=== PATIENT | male | born 1975 | race Caucasian/White ===

== ENCOUNTER 2018-04-02 15:39 | Inpatient (IN) ==
[2018-04-02 16:32] LABS: Basophils # (auto) 0.03 K/uL (0-0.2); Basophils % (auto) 0.3 %; Eosinophils # (auto) 0.23 K/uL (0-0.5); Hematocrit (blood only) 39.2 % (42-52); Hemoglobin 13.2 g/dL (14.0-18.0); Immature Granulocytes # (auto) 0.06 K/uL (0.00-0.02); Immature Granulocytes % (auto) 0.5 %; Lymphocytes # (auto) 1.74 K/uL (1.2-3.4); Lymphocytes % (auto) 15.3 %; Mean Corpuscular Hgb Conc 33.7 g/dL (32-36); Mean Corpuscular Volume 89.3 fL (80-100); Mean Platelet Volume 10.3 fL (7.4-10.4); Monocytes # (auto) 1.12 K/uL (0.11-0.59); Monocytes % (auto) 9.9 %; Neutrophils # (auto) 8.16 K/uL (1.4-6.5); Platelet Count 378 K/uL (130-400); RDW Coefficient of Variation 13.1 % (11.5-14.5); RDW Standard Deviation 42.6 fL (36.4-46.3); Red Blood Count 4.39 M/uL (4.7-6.1); White Blood Count 11.34 K/uL (4.8-10.8)
[2018-04-02 17:07] LABS: Albumin Globulin Ratio 0.7 (0.9-2); Albumin Level 3.1 gm/dl (3.4-5.0); BUN Creatinine Ratio 15.9 (10-20); Bilirubin,Total 0.4 mg/dl (0.1-1); Calcium 9.1 mg/dl (8.5-10.1); Est GFR (African American) 102.4; Est GFR (Non-African American) 88.4; Globulin 4.6 gm/dl (2.5-4.0); Potassium 4.3 mmol/L (3.5-5.1); Total Protein 7.7 gm/dl (6.4-8.2)
[2018-04-02] MEDS ORDERED: VANCOMYCIN HCL 1,500 MG in SODIUM CHLORIDE 0.9% 500 ML IV ONE (17:46)
[2018-04-02] MEDS ORDERED: VANCOMYCIN CONSULT ACTIVE PRN ×2 (17:46→19:27)
--- NOTE | 2018-04-02 18:00 | History & Physical Report ---
Date of Service April 02, 2018 Assessment & Plan (1) Diabetic ulcer of left foot: - Xray negative for acute osteomyelitis, if worsening appearance can consider MRI foot. - WBC elevated mildly at 13 K with a left shift, afebrile, VSS - Pt was here in the ER on Sunday and received tx with Rocephin and was sent home with keflex and bactrim without improvement. - Cont Vanc and add zosyn IV for skin involvement - Wound culture of left lateral plantar surface ulceration, MRSA swab, wound consult - Non-painful so no pain medication necessary (2) DM type 1 (diabetes mellitus, type 1): - Continue Lantus 20 U Q PM and Q AM - ISS with accuchecks - A1c in am. - Pt notes glucose has been running around 200s on most days. May need increased insulin at time of discharge, close follow up with PCP for management (3) Renal insufficiency: - Secondary to DM - Follow am prp, Cr. currently 1.05 and at baseline (4) Smoking greater than 30 pack years: - Cessation encouraged at bedside, ordered nicotine patch - Pt typically smokes 1 ppd since age 17, making his pack years = 35 (5) DVT prophylaxis: SCDs until seen by podiatry History of Present Illness Chief Complaint: Left foot ulcer Primary Care Provider: Polina Whitmore MD This is a 42 yo M with PMHx of DM type I, renal insufficiency, chronic tobacco use smoking 1 pack/day x 35 years, diabetic left foot ulcers who presents today after visiting with his PCP. Pt's fiance is present at bedside and supports the history. Patient notes his foot had been red, warm, and he has been unable to walk very well on it for long distances due to pain. It was more swollen a few days ago but has not completely resolved, skin on his foot is peeling where it was more swollen. The ulcer started oozing purulent fluid several days ago. He denies any fevers, chills or sweats. Patient was in the ER on 03/31/18 where he was treated with IV Rocephin for a left sided foot ulcer, although there are multiple ulcers on the left foot, the ulcer that PCP is concerned about is the one that is most lateral on the plantar surface. He was sent home from the ER with prescriptions for Keflex and Bactrim and began taking these. Patient was seen in his PCP earlier today and she feels that the left foot ulcer does not look much more improved therefore sent him back to the ER for IV antibiotics. Here the patient has a white count of 13 K with a left shift Afebrile, VSS, x-ray of the foot is negative for osteomyelitis. Allergies Allergy/AdvReac Type Severity Reaction Status Date / Time No Known Allergies Allergy Mild Verified 03/31/18 23:54 Home Medications Home Medications Medication Instructions Recorded Confirmed Type insulin glargine [Lantus U-100 20 unit SUBCUT AMPM 03/31/18 04/02/18 History Insulin] insulin lispro [Humalog KwikPen 0 units SUBCUT ACHS 03/31/18 04/02/18 History Insulin] cephalexin [Keflex] 500 mg PO QID 10 Days #40 cap 04/01/18 04/02/18 Rx sulfamethoxazole-trimethoprim 1 tab PO Q12H #20 tab 04/01/18 04/02/18 Rx [Bactrim DS] Past Med/Surg History Medical History Smoking greater than 30 pack years DM type 1 (diabetes mellitus, type 1) Diabetic ulcer of left foot (Acute) Diabetes Cellulitis (Acute) Social History marital status: Current Living Situation: Spouse current occupational status: employed Feels Safe at Home: Yes Smoking Status: Current every day smoker Review of Systems Constitutional: No fever, sweats or chills Eyes: No diplopia, no worsening or blurred vision ENT: normal hearing, no trouble swallowing Respiratory: No cough, sputum, dyspnea at rest or on exertion Cardiovascular: No chest pain, tightness or palpitations Abdomen: No pain, nausea, vomiting, diarrhea or constipation Musculoskeletal: No joint pain, calf pain, swelling, see HPI regarding foot. Neurologic: No weakness, numbness/tingling, or balance problems Psychiatric: No anxiety or depression Skin: No rash or itch Physical Exam 2 Vital Signs (Past 24 Hours): Last Vital Signs Temp 36.8 C 04/02/18 15:48 Pulse 88 04/02/18 15:48 Resp 18 04/02/18 15:48 BP 116/71 04/02/18 15:48 Pulse Ox 99 04/02/18 15:48 Physical Exam: General: awake, alert, no apparent distress Head: Normocephalic, atraumatic ENT: PERRL, EOMI, no pharyngeal exudate, mucous membranes moist, + poor dentition Chest: Clear to auscultation, on room air, no adventitious breath sounds Cardiac: Regular rate and rhythm, no murmur, no JVD, normal peripheral pulses, good capillary refill Abdominal: NABS x 4 quadrants, soft, nontender to palpation, no rebound, guarding or tenderness Extremities: + Left foot s/p great toe amputation, + ulceration on plantar surface of great toe metatarsal measuring about 1cm in diameter, no erythema. + ulceration on plantar surface at the lateral aspect under fifth toe metatarsal which is slightly smaller in size, surrounding erythema, + serosanguineous drainage. + small ulceration on dorsal aspect of 5th toe metatarsal, + generalized erythema and minimal edema of the left foot, + warmth up to the ankle. + BLE ant tibial region dry skin patches, + R foot with dry cracked skin. calfs nontender to palpation. + Erythema of bilateral elbows, nonpainful to touch, no edema. Psych: Normal mood and affect Neuro: AAO x 3, strength intact bilaterally and related 5/5, no motor deficits, speech is clear, no peripheral sensory deficits Results & Data Diagnostic Findings XR foot LT 2V HISTORY: 42 years-old Male eval for osteo of 1st and 5th toes soft tissue swelling of the foot with concern for osteomyelitis COMPARISON: Left foot radiographs 02/16/2013 TECHNIQUE: 2 views of the left foot FINDINGS: Postoperative changes from prior amputation of the first and fifth digits at the level of the metatarsal phalangeal joints. Moderate soft tissue swelling about the forefoot. Ill-defined soft tissue lucencies about the first and fifth digits suggest possible skin ulcerations. No opaque foreign bodies identified. Severe joint space narrowing with marginal osteophytic spurring of the second metatarsophalangeal joint with superior subluxation of the second through fourth metatarsophalangeal joints. Demineralized appearance of the bones. No acute fracture, dislocation or definite evidence of acute osteomyelitis. Peripheral arterial calcifications are noted. IMPRESSION: 1. 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 Soft tissue swelling noted within these distributions without definite evidence of acute osteomyelitis. 2. Degenerative changes as above with subluxation of the second through fourth metatarsal phalangeal joints. 3. Peripheral arterial disease. Code Status & VTE Plan Code Status Full code Supervising Physician Co-Signing Physician Notes I interviewed and examined the patient independantly of Rosalind Ashraf PA-C. I agree with the assessment and plan in her note with any exceptions below. 42yo M w/ hx of DM1 who presents with left foot ulcers. Will start vanc/Zosyn as he was not improving on oral abx. Will have podiatry and wound care see him inpatient. _ (1) Diabetic ulcer of left foot Diabetes mellitus type: type 1 Diabetic foot ulcer location: toe Non- pressure ulcer stage: unspecified non-pressure ulcer stage Qualified Code(s): E10.621 - Type 1 diabetes mellitus with foot ulcer; L97.529 - Non-pressure chronic ulcer of other part of left foot with unspecified severity (2) DM type 1 (diabetes mellitus, type 1) Diabetes mellitus complication status: with skin complications Diabetes mellitus complication detail: with foot ulcer Qualified Code(s): E10.621 - Type 1 diabetes mellitus with foot ulcer; L97.509 - Non-pressure chronic ulcer of other part of unspecified foot with unspecified severity
[2018-04-02] MEDS ORDERED: GLUCOSE 40% GEL 15 GM TUBE PO PRN (19:27)
[2018-04-02] MEDS ORDERED: ONDANSETRON INJ 2 MG/ML 2 ML VIAL IV PRN (19:27)
[2018-04-02] MEDS ORDERED: DEXTROSE 50% 50 ML SYRINGE IV PRN (19:27)
[2018-04-02] MEDS ORDERED: PIPERACILLIN/TAZOBACTAM 4.5 GM/120 ML BAG IV SCH (19:27)
[2018-04-02] MEDS ORDERED: PIPERACILL/TAZOBAC CONSULT ACTIVE PRN (19:27)
[2018-04-02] MEDS ORDERED: GLUCAGON FOR INJ 1 MG VIAL SQ PRN (19:27)
[2018-04-02] MEDS ORDERED: CARBOHYDRATES FOR HYPOGLYCEMIA PO PRN (19:27)
[2018-04-02] MEDS ORDERED: GLUCOSE 10 TABS/TUBE PO PRN (19:27)
[2018-04-02] MEDS ORDERED: VANCOMYCIN HCL 1,000 MG in SODIUM CHLORIDE 0.9% 250 ML IV SCH (19:27)
--- NOTE | 2018-04-02 19:39 | Emergency Department Note ---
Entered by Dominga Dey acting as a scribe for History of Present Illness General Chief complaint: Foot Pain/Injury Stated complaint: LEFT FOOT PAIN Source: patient Limitations: no limitations History of Present Illness Provider complaint: foot pain Onset (ago): month(s) 2 Location: foot and left Maximum Pain Intensity: 6 Associated symptoms: + denies other symptoms (runny nose); no chest pain and no cough The patient is a 42 year old male who presents to the Emergency Room with complaints of left foot pain that has been going on for 2 months. The patient states that he was in the ED 2 days prior and states that he was given a prescription for Bactrim and then discharged. The patient states that he just started the Bactrim yesterday. The patient denies chest pain, runny nose, or coughing. The patient states that he has a history of Type 1 diabetes and states that he last checked his blood sugar this morning. Home Medications Home Medications Medication Instructions Recorded Confirmed Type insulin glargine [Lantus U-100 20 unit SUBCUT AMPM 03/31/18 04/02/18 History Insulin] insulin lispro [Humalog KwikPen 0 units SUBCUT ACHS 03/31/18 04/02/18 History Insulin] cephalexin [Keflex] 500 mg PO QID 10 Days #40 cap 04/01/18 04/02/18 Rx sulfamethoxazole-trimethoprim 1 tab PO Q12H #20 tab 04/01/18 04/02/18 Rx [Bactrim DS] Allergies Allergy/AdvReac Type Severity Reaction Status Date / Time No Known Allergies Allergy Mild Verified 03/31/18 23:54 Past Med/Surg History Medical History Smoking greater than 30 pack years DM type 1 (diabetes mellitus, type 1) Diabetic ulcer of left foot (Acute) Diabetes Cellulitis (Acute) Social History marital status: Current Living Situation: Spouse current occupational status: employed Feels Safe at Home: Yes Smoking Status: Current every day smoker Review of Systems See HPI for pertinent positives & negatives. and A total of 10 systems reviewed and were otherwise negative Physical Exam Vital Signs Vital Signs - 24 hr 04/02/18 15:48 04/02/18 19:27 Temperature 36.8 C Temperature Source Oral Sepsis Recent Fever Within 48 Hours No Sepsis New/Unexplained Change in Mental Status No Sepsis Action Taken by Nursing No Action Required Pulse Rate 88 76 Pulse Rhythm Regular Pulse Strength Normal Respiratory Rate 18 16 Respiratory Effort / Characteristics Non-Labored Spontaneous Respiratory Depth Normal Respiratory Pattern Regular Blood Pressure 116/71 125/69 Blood Pressure Mean 86 Blood Pressure Position Sitting Pulse Oximetry 99 98 Oxygen Delivery Method Room Air Room Air GENERAL: Sitting up in bed, alert, well appearing, well nourished, no distress, non-toxic EYE EXAM: normal conjunctiva. OROPHARYNX: no exudate, no erythema, lips, buccal mucosa, and tongue normal and mucous membranes are moist NECK: supple, no nuchal rigidity, no adenopathy, non-tender LUNGS: Clear to auscultation. Normal chest wall mechanics HEART: no murmurs, S1 normal and S2 normal ABDOMEN: abdomen soft, non-tender, normo-active bowel, sounds, no masses, no rebound or guarding. BACK: Back is symmetrical on inspection and there is no deformity, no midline tenderness, no CVA tenderness. SKIN: no rashes and no bruising UPPER EXTREMITIES: upper extremities are grossly normal. LOWER EXTREMITIES: No pitting edema. Left foot 1st and 5th metatarsal prior amputation. 1cm ulcer draining at base of left 5th MTP with green purulent discharge. 1cm by 1cm ulcer drainage with green discharge at base of left foot tracks down into muscle belly. 1cm by 2cm ulcer at base of amputated 1st metatarsal, tracking down to muscle belly. NEURO EXAM: Normal sensorium, cranial nerves II-XII intact, normal speech, no weakness of arms, no weakness of legs. Course ED COURSE: Vital signs were reviewed and showed normal. The patients medical record was reviewed The above diagnostic studies were performed and reviewed. ED treatments and interventions as stated above. 1554: The patient was evaluated in room A3. A complete history and physical examination was performed. 1612: I discussed the patient's case with his provider who recommended that the patient be seen in the ED again due to the patient's muscle aches. 1840: Upon reevaluation, the patient is doing better. I discussed my findings with the patient and he understands and agrees with the treatment plan. Based on the patients age, coexisting illnesses, exam and lab findings the decision to treat as an inpatient was made. The patient remained stable while under my care. 1855: The patient will be evaluated for further management by Dr. Hayden Castro Consultations Consultation #1: Dr. Hayden Castro Time: 18:55 Administered Medications Vancomycin HCl 1,500 mg/ (Sodium Chloride) 530 mls @ 200 mls/hr IV NOW ONE Stop: 04/02/18 20:24 Last Admin: 04/02/18 18:38 Dose: 200 mls/hr Medical Decision Making Differential Diagnosis Differential diagnosis includes etiologies such as cellulitis, abscess, MRSA infection, DVT, necrotizing fasciitis, dermatitis, drug eruption, as well as others were entertained. Medical Records Attestation: I reviewed the patient's medical records. Home Medications Current Medication List: was personally reviewed by me Laboratory Data Attestation: I reviewed the patient's lab results. Result diagrams: 04/02/18 16:20 04/02/18 16:20 Lab Results 04/02/18 04/02/18 Range/Units 16:20 16:20 WBC 11.34 H (4.8-10.8) K/uL RBC 4.39 L (4.7-6.1) M/uL Hgb 13.2 L (14.0-18.0) g/dL Hct 39.2 L (42-52) % MCV 89.3 (80-100) fL MCH 30.1 (25-34) pg MCHC 33.7 (32-36) g/dL RDW Std Deviation 42.6 (36.4-46.3) fL RDW Coeff of Shauna 13.1 (11.5-14.5) % Plt Count 378 (130-400) K/uL MPV 10.3 (7.4-10.4) fL Immature Gran % (Auto) 0.5 % Neut % (Auto) 72.0 % Lymph % (Auto) 15.3 % Shannon % (Auto) 9.9 % Eos % (Auto) 2.0 % Baso % (Auto) 0.3 % Immature Gran # (Auto) 0.06 H (0.00-0.02) K/uL Neut # (Auto) 8.16 H (1.4-6.5) K/uL Lymph # (Auto) 1.74 (1.2-3.4) K/uL Shannon # (Auto) 1.12 H (0.11-0.59) K/uL Eos # (Auto) 0.23 (0-0.5) K/uL Baso # (Auto) 0.03 (0-0.2) K/uL Sodium 137 (136-145) mmol/L Potassium 4.3 (3.5-5.1) mmol/L Chloride 102 (98-107) mmol/L Carbon Dioxide 28 (21-32) mmol/L Anion Gap 7.0 (3-11) BUN 17 (7-18) mg/dl Creatinine 1.05 (0.6-1.4) mg/dl Est Cr Clr Drug Dosing 84.0 ml/min Est GFR ( Amer) 102.4 Est GFR (Non-Af Amer) 88.4 BUN/Creatinine Ratio 15.9 (10-20) Glucose 291 H (70-99) mg/dl Calcium 9.1 (8.5-10.1) mg/dl Total Bilirubin 0.4 (0.1-1) mg/dl AST 30 (15-37) U/L ALT 135 H (12-78) U/L Alkaline Phosphatase 425 H (45-117) U/L Total Protein 7.7 (6.4-8.2) gm/dl Albumin 3.1 L (3.4-5.0) gm/dl Globulin 4.6 H (2.5-4.0) gm/dl Albumin/Globulin Ratio 0.7 L (0.9-2) Blood Pressure Blood Pressure Findings: Normal blood pressure MDM Narrative Patient is a 42-year-old male presents the ER for infected left foot. Patient was seen here couple days ago for the same complaint and was discharged on Bactrim and Keflex. Patient has taken a total 24 hours of Bactrim and Keflex. He is a diabetic. He was sent in by his PCP who evaluated him. I talked with the PCP who was gracious enough to call me back and notes that she would like him reevaluated and possible by orthopedics. Based on this I discussed case with the hospitalist for further workup. Recent x-ray showed no osteo-. Patient was given IV vancomycin as well as fluids. He was updated bedside. CBC showed a mild leukocytosis. BMP was unremarkable along with a mild transaminitis of an ALT of 135. Patient was admitted to the hospital for further workup. Impression & Plan Cellulitis Discharge Plan Visit Data Chief Complaint: Foot Pain/Injury Stated Complaint: LEFT FOOT PAIN ED Provider: Tyler Ruth Discharge Problem: Cellulitis Patient Disposition: Admitted As Inpatient Discharge Instructions Interventions: ED Discharge Assessment Last Done: 04/02/18 19:27 The scribe's documentation has been prepared under my direction and personally reviewed by me in its entirety. I confirm that the note above accurately reflects all work, treatment, procedures, and medical decision making performed by me.
[2018-04-02] MEDS ORDERED: PIPERACILLIN/TAZOBACTAM 3.375 GM in DEXTROSE 5% 100 ML IV ONE (19:45)
[2018-04-02] MEDS ORDERED: INSULIN GLARGINE SOLOSTAR 100 UNITS/ML 3 ML PEN SQ SCH (20:30)
[2018-04-02] MEDS: NICOTINE 21 MG/24 HR TDSY TD SCH (20:58)
[2018-04-02] MEDS ORDERED: INSULIN LISPRO SQ SCH (21:00)
--- NOTE | 2018-04-02 21:06 | Pharmacy Report ---
Pharmacy Abx Dose Short Note - Date of Service April 02, 2018 - Assessment & Plan Assessment * 43 yo M on Zosyn and vancomycin for diabetic foot infection * Failed outpatient cephalexin and Bactrim * X-ray negative for osteomyelitis * SCr at baseline per H&P Vancomycin * Goal trough 15-20 mcg/mL * 24 mg/kg administered in the ED * Will dose ongoing at 19 mg/kg IV q10h * Trough prior to the 4th overall dose Plan * Vancomycin 1250 mg IV q10h * Trough 04/03 @ 2330 Pharmacy will continue to follow and will adjust dose/frequency as necessary. Thank you.
[2018-04-02] MEDS: INSULIN GLARGINE SOLOSTAR 100 UNITS/ML 3 ML PEN SQ SCH (21:16)
[2018-04-02] MEDS: INSULIN ASPART 100 UNITS/ML 3 ML PEN SC SCH (21:39)
[2018-04-03] MEDS: PIPERACILLIN/TAZOBACTAM 3.375 GM in DEXTROSE 5% 100 ML IV SCH ×3 (01:54→18:18)
[2018-04-03] MEDS: VANCOMYCIN HCL 1,250 MG in SODIUM CHLORIDE 0.9% 250 ML IV SCH ×3 (03:54→23:47)
[2018-04-03 05:44] LABS: Mean Corpuscular Hgb Conc 33.3 g/dL (32-36); Mean Corpuscular Volume 88.8 fL (80-100); Mean Platelet Volume 10.1 fL (7.4-10.4); Platelet Count 405 K/uL (130-400); RDW Coefficient of Variation 13.1 % (11.5-14.5); RDW Standard Deviation 42.8 fL (36.4-46.3); Red Blood Count 4.39 M/uL (4.7-6.1)
[2018-04-03 06:16] LABS: Estimated Average Glucose 278 mg/dl
[2018-04-03 06:21] LABS: Albumin Level 2.5 gm/dl (3.4-5.0); BUN Creatinine Ratio 17.5 (10-20); Calcium 8.4 mg/dl (8.5-10.1); Creatinine Clr Calc Pharmacy 86.5 ml/min; Est GFR (African American) 111.3; Est GFR (Non-African American) 96.1; Potassium 3.8 mmol/L (3.5-5.1)
[2018-04-03 06:24] LABS: Albumin Globulin Ratio 0.6 (0.9-2); Bilirubin,Total 0.3 mg/dl (0.1-1); Globulin 4.3 gm/dl (2.5-4.0); Total Protein 6.8 gm/dl (6.4-8.2)
[2018-04-03] MEDS: NICOTINE 21 MG/24 HR TDSY TD SCH (08:52)
[2018-04-03] MEDS: INSULIN GLARGINE SOLOSTAR 100 UNITS/ML 3 ML PEN SQ SCH (08:53)
[2018-04-03] MEDS: INSULIN ASPART 100 UNITS/ML 3 ML PEN SC SCH ×4 (08:53→21:08)
[2018-04-03] MEDS ORDERED: ACETAMINOPHEN 325 MG TAB PO PRN (09:16)
[2018-04-03] MEDS ORDERED: TRAMADOL HCL 50 MG TABLET PO PRN (09:16)
[2018-04-03] MEDS ORDERED: PHARMACY GLYCEMIC MGMT CONSULT PRN (13:07)
--- NOTE | 2018-04-03 13:14 | Hospitalist Progress Note ---
Date of Service April 03, 2018 Assessment & Plan (1) Diabetic ulcer of left foot: X-ray on 04/01 was negative for acute osteomyelitis; however, he was seen by podiatry on 04/03 who had clinical concern for osteomyelitis. MRI of left foot ordered on 04/03, but not done yet. - Follow up wound culture from 04/01 of left lateral plantar surface ulceration - Repeat culture done by podiatry on 04/03 - Cont vanc/Zosyn for diabetic foot ulcer (2) DM type 1 (diabetes mellitus, type 1): A1c on 04/03 was 11.3%, indicating an average glucose of ~275. Not great control. - Continue home Lantus 20 units Q12h - Sliding scale - Glycemic consult (3) Smoking greater than 30 pack years: Pt typically smokes 1 ppd since age 17. - Cessation encouraged at bedside, ordered nicotine patch. (4) DVT prophylaxis: SCDs until MRI given he may need surgery Subjective 42yo M w/ hx of DM1 who presents with left foot ulcers. This morning, he was in ok spirits. Had been hoping to be discharged, but understands why he can't go yet. Reports no fevers/chills, chest pain, shortness of breath, abdominal pain, nausea, or vomiting. Physical Exam 2 Vital Signs (Past 24 Hours): Last Vital Signs Temp 36.7 C 04/03/18 07:32 Pulse 81 04/03/18 07:32 Resp 20 04/03/18 07:32 BP 108/71 04/03/18 07:32 Pulse Ox 96 04/03/18 07:32 Constitutional: WD/WN, vitals as above Eyes: EOM intact bilaterally; no conjunctival abnormality ENMT: external ear and nose normal, oropharynx normal Neck: trachea midline, no thyromegaly normal visual inspection Respiratory: normal respiratory effort, lungs clear to auscultation no respiratory distress Cardiovascular: RRR, no murmur, no edema Gastrointestinal (Abdomen): Inspection/Auscultation: abdomen normal to inspection; abdomen not distended Musculoskeletal: no cyanosis or clubbing, extremities motor strength 5/5 Skin: + wound (3 wounds on left foot) Neurologic: moves all extremities and awake Psychiatric: Orientation: alert, oriented to person and cooperative _ (1) Diabetic ulcer of left foot Diabetes mellitus type: type 1 Diabetic foot ulcer location: toe Non- pressure ulcer stage: unspecified non-pressure ulcer stage Qualified Code(s): E10.621 - Type 1 diabetes mellitus with foot ulcer; L97.529 - Non-pressure chronic ulcer of other part of left foot with unspecified severity (2) DM type 1 (diabetes mellitus, type 1) Diabetes mellitus complication status: with skin complications Diabetes mellitus complication detail: with foot ulcer Diabetic retinopathy severity: Proliferative retinopathy type: Diabetes mellitus macular edema: Laterality : Chronic kidney disease stage: Qualified Code(s): E10.621 - Type 1 diabetes mellitus with foot ulcer; L97.509 - Non-pressure chronic ulcer of other part of unspecified foot with unspecified severity
--- NOTE | 2018-04-03 14:02 | Pharmacy Report ---
Glycemic Control Consultation - Date of Service April 03, 2018 - Scope Scope: Glycemic Pharmacist consulted by Dr Pradip Lemus on 04-03-18 for glycemic control and to write orders per [facility] inpatient glycemic control protocol - Objective Weight: 61 kg Accuchecks BSG (last 24hrs): 04/02/18 04/02/18 04/03/18 16:20 19:52 05:19 Glucose 291 H 216 H POC Glucose 372 H* 04/03/18 04/03/18 07:46 11:41 Glucose POC Glucose 167 H 260 H Laboratory Data (last 24hrs): HbA1c: Hemoglobin A1c 11.3 % (4.5-5.6) H 04/03/18 05:19 - Recent Pertinent Medications Outpatient Anti-diabetic Regimen: * Lantus 20 units QAM and QPM, Lispro ACHS * A1c = 11.3 % [04-03-18] The patient is currently receiving: * Basal insulin: Lantus 20 units BID * Correctional Insulin: Novolog Correction per scale ACHS Goal Range: Low 110 mg/dL - High 160 mg/dL Correction Factor: 25 mg/dL/unit * Prandial insulin: Per carb ratio of 1 unit per 10 grams CHO consumed * Oral Agents: Risk Factors for Insulin Resistance * Infection: diabetic foot infection - vancomcyin/zosyn * Diet: T1DM - Assessment & Plan Assessment & Plan: ASSESSMENT: * 42 year old type 1 diabetic admitted with diabetic foot infection. Concern for possible osteomyelitis, currently on vancomycin and zosyn. A1c of 11.3 indicates poor control at home. Per provider notes, patient states his BSGs have been in the 200s on most days. * Pharmacy consulted today for glucose management - suspect hyperglycemia on admission due to infection * Fasting BSG this morning elevated at 216 mg/dL, then at lunchtime at 260 mg/ dL - already received Lantus 20 units this morning (his usual home dose) and also sliding scale coverage * Will further tighten dinner time CF/CR and also adjust bedtime Lantus dosing PLAN FOR INPATIENT GLYCEMIC CONTROL * Basal insulin - increased * Lantus BID per scale -For BSG less than 180 - give 20 units of Lantus -For BSG 180 mg/dL or greater - give 25 units of Lantus * Bolus insulin - tightened ; also added overnight checks * NovoLog per scale ACHS or Q6hrs while NPO * Goal Range: Low 110 mg/dL - High 140 mg/dL * Correction Factor: 20 mg/dL/unit * Nutritional / Prandial insulin per carb ratio of 1 unit per 8 grams CHO consumed * Please note that the plan above was derived based on current level of insulin resistance and hospital stress. These recommendations are appropriate for inpatient admission only. Plan of care upon discharge will need to be reassessed to avoid potential outpatient hypo/hyperglycemia. Thank you.
[2018-04-03] MEDS ORDERED: MoRPHine SULFATE 4 MG/ML 1 ML CARP\\VIAL IV PRN (14:28)
--- NOTE | 2018-04-03 14:29 | Magnetic Resonance Report ---
MRI OF THE LEFT FOOT WITHOUT CONTRAST CLINICAL HISTORY: Evaluate for first and fifth digit osteomyelitis. Infection. COMPARISON STUDY: Left foot radiographs April 01, 2018. MRI of the left foot February 15, 2013. TECHNIQUE: Utilizing a 1.5 Gillian magnet, multiplanar, multiecho imaging of the left foot was performe d without intravenous contrast. FINDINGS: Note is made of amputation of the first and fifth digits at the level of the metatarsophala ngeal joints. There is marrow edema throughout the left fifth metatarsal with markedly diminished T1 signal within the left fifth metatarsal head consistent with osteomyelitis. Note is made of an subjac ent 2 x 2.1 x 0.5 cm fluid collection along the lateral aspect of the left fifth metatarsal head sugg estive of an abscess. Note is made of an additional 1.5 x 0.8 cm fluid collection along the plantar m edial aspect of the left fifth metatarsal suggestive of an additional abscess. Small hypodense foci a djacent to the amputation site within the left first digit likely reflects gas. There is also suspect ed gas adjacent to the fifth digit amputation site. Note is made of a 0.9 cm T2 1 hypointense focus w ithin the dorsal distal aspect of the left first metatarsal head. There is marrow edema within the le ft first metatarsal. This suggests distal osteomyelitis. Chronic subluxation at the second and third metatarsophalangeal joints is noted. No additional sites of marrow edema are present. IMPRESSION: 1. Findings consistent with osteomyelitis of the left fifth metatarsal head likely extending into the distal metatarsal shaft. Two fluid collections adjacent to the fifth metatarsal suggest abscesses, a s described above. 2. Findings suggestive of focal osteomyelitis of the dorsal left first metatarsal head with osteitis within the remainder of the left first metatarsal. 3. Status post amputation of the left first and fifth digits at the level the metatarsophalangeal abel nts. Suspected gas within the adjacent soft tissues. Electronically signed by: Antony Betancur M.D. 04/03/2018 2:28 PM
--- NOTE | 2018-04-03 15:16 | Ultrasound Report ---
US ankle/brachial index comp CLINICAL HISTORY: with digital toe presssure for chronic ulceration COMPARISON STUDY: Left lower extremity arterial Doppler study 09/10/2012. FINDINGS: The right ankle-brachial index was unable to be calculated due to the noncompressible poste rior tibial and dorsalis pedis arteries. The digit/brachial index on the right was 0.6. A left ankle- brachial index was 1.4 and the left digit/brachial index was 0.28. IMPRESSION: Ankle/brachial and digit/brachial indices as described above. Electronically signed by: Rolly Olson M.D. 04/03/2018 3:14 PM
--- NOTE | 2018-04-03 20:24 | Consultation Report ---
DATE OF CONSULTATION: 04/03/2018 HISTORY OF PRESENT ILLNESS: A 42-year-old male seen at bedside at the request of the hospitalist due to foot wound. The patient presented to the ER 6 days ago due to left foot pain. He was given 1 dose of Rocephin and discharged on Keflex and Bactrim. Earlier today, the patient saw his primary care doctor who recommended admission for IV antibiotics due to continued left foot pain. The patient was readmitted to the hospital and started on vancomycin and Zosyn. He is an uncontrolled diabetic, history of foot problems in [address] Pandya amputated the left first and fifth digit secondary to a bone infection per the patient. The patient has been not followed on a regular basis and has not taken his diabetes medicine secondary to losing his insurance. He denies fevers, chills and night sweats at bedside. He does know recently a new opening on the dorsal aspect of his left foot. The patient was seen at bedside with the help of wound care nurse from [facility]. PAST SURGICAL HISTORY: Retinopathy for eye surgery in 2009, right knee scope in 2005, and left foot surgery in 2017. PAST MEDICAL HISTORY: IDDM poorly controlled with peripheral vascular disease and peripheral neuropathy and renal insufficiency and diabetic retinopathy. MEDICATIONS: Per chart. Currently on vancomycin and Zosyn. ALLERGIES: No known drug allergies. SOCIAL HISTORY: A 30-year tobacco use history, currently engaged to be . PHYSICAL EXAMINATION: VITAL SIGNS: BP 105/65, pulse 75, respiratory rate 20, temp 36.8. LOWER EXTREMITY: Digital hair is palpable. There is bleeding. Pulses difficult to obtain bilateral lower extremities. Bleeding is noted upon debridement. DERMATOLOGIC: The integument to the right foot is intact. The left foot has 3 openings. The left first MTPJ distal plantarly measuring 1.5 x 1.2 x 0.4 with bone exposed and palpable; the plantar lateral left fifth MTPJ measuring 0.8 x 0.9 x 0.9 with bone exposed and purulent serosanguineous drainage noted over the left fifth MTPJ; dorsolateral, there is a new opening measuring 0.5 x 0.7 x 1.1, which is tracking. NEUROLOGIC: Epicritic sensation per [employer] monofilament 5.07 decreased. MUSCULOSKELETAL: Pain noted around the ulcerative sites upon debridement only. There is amputation at the metatarsal foot joint level at the left first and fifth digits. LABORATORY DATA: GILBERT on the right is 0.6 and on the left 1.4. Left digital toe pressure is measuring 0.28 with difficulty obtaining the test due to noncompressability. RADIOGRAPHIC DATA: X-rays show calcification. No periosteal lifting. MRI shows marrow edema on the left fifth MTPJ consistent with osteomyelitis involving the distal metatarsal shaft. There was also fluid collection in 2 places both lateral and plantar medial. The left first metatarsal head is also suspicious for osteomyelitis with chronic subluxation of the left second and third MTPJ with gas in the subcutaneous soft tissue over the left first and left fifth. MICROBIOLOGY: Cultures from ER visit show group B beta strep and Staph aureus. IMPRESSION: 1. Osteomyelitis, left foot involving left fifth metatarsophalangeal joint and left first metatarsophalangeal joint. 2. Gas gangrene with deep abscess per MRI. 3. Insulin-dependent diabetes mellitus with peripheral neuropathy and peripheral vascular disease poorly controlled. 4. Renal insufficiency. 5. Diabetic retinopathy. TREATMENT: Debridement to bone of the left first and fifth MTP joints. Wound culture was obtained and then canceled due to previous culture. It was unknown if that had been taken from last admission. We attempted to call micro to cancel this. Reviewed x-rays and MRI findings. The patient was seen at bedside early this afternoon and then spoken with on the phone regarding the MRI report. Due to the collection of fluid, gas gangrene with infected bone and palpable to bone, the patient is amenable to resection of the bone that is involved and exposed plantarly. I reviewed the procedure, risks and complications for left foot I and D with removal of the left first and fifth metatarsals. This will again be discussed further at [facility] tomorrow prior to surgery. The patient is amenable to removing the infected bone. We briefly discussed 6 weeks of IV antibiotics and PICC line being placed. A consult for ID and vascular surgery ordered. Discussed the case with Dee from the wound care center who ordered DH sandal to be performed by MrSherry Prior to offload these areas. Continue empiric antibiotics, vancomycin and Zosyn. The patient will be cotton wringer tomorrow to the OR for left foot surgery.
[2018-04-03] MEDS ORDERED: INSULIN GLARGINE SOLOSTAR 100 UNITS/ML 3 ML PEN SQ SCH (21:00)
[2018-04-03] MEDS: CLOTRIMAZOLE 1% CR 15 GM TUBE EXT SCH (21:06)
[2018-04-03] MEDS ORDERED: VANCOMYCIN TROUGH ONE (23:30)
[2018-04-04] MEDS ORDERED: INSULIN ASPART 100 UNITS/ML 3 ML PEN SC SCH
[2018-04-04] MEDS: INSULIN ASPART 100 UNITS/ML 3 ML PEN SC SCH ×6 (00:02→21:02)
[2018-04-04] MEDS: PIPERACILLIN/TAZOBACTAM 3.375 GM in DEXTROSE 5% 100 ML IV SCH ×3 (02:30→18:01)
[2018-04-04] MEDS: NICOTINE 21 MG/24 HR TDSY TD SCH (07:56)
[2018-04-04] MEDS: CLOTRIMAZOLE 1% CR 15 GM TUBE EXT SCH (08:00)
[2018-04-04 08:02] LABS: Hematocrit (blood only) 38.6 % (42-52); Hemoglobin 12.6 g/dL (14.0-18.0); Mean Corpuscular Hgb Conc 32.6 g/dL (32-36); Mean Corpuscular Volume 89.4 fL (80-100); Mean Platelet Volume 10.1 fL (7.4-10.4); Platelet Count 423 K/uL (130-400); RDW Coefficient of Variation 13.3 % (11.5-14.5); RDW Standard Deviation 43.6 fL (36.4-46.3); Red Blood Count 4.32 M/uL (4.7-6.1); White Blood Count 10.93 K/uL (4.8-10.8)
[2018-04-04 08:19] LABS: Albumin Level 2.6 gm/dl (3.4-5.0); BUN Creatinine Ratio 16.9 (10-20); Calcium 8.4 mg/dl (8.5-10.1); Creatinine Clr Calc Pharmacy 95.2 ml/min; Potassium 4.1 mmol/L (3.5-5.1)
[2018-04-04 08:22] LABS: Albumin Globulin Ratio 0.6 (0.9-2); Bilirubin,Total 0.3 mg/dl (0.1-1); Globulin 4.2 gm/dl (2.5-4.0); Total Protein 6.8 gm/dl (6.4-8.2)
[2018-04-04] MEDS: VANCOMYCIN HCL 1,250 MG in SODIUM CHLORIDE 0.9% 250 ML IV SCH ×2 (08:50→16:42)
[2018-04-04] MEDS ORDERED: INSULIN GLARGINE SOLOSTAR 100 UNITS/ML 3 ML PEN SQ SCH (09:00)
--- NOTE | 2018-04-04 10:01 | Anesthesiology Consultation ---
Date of Service April 04, 2018 Assessment & Plan Chart Review Chart Review: Acceptable Risk for Surgery, Pending: Refer to Additional Notes / Consult section and Patient NOT seen in Pre Admission Testing Consults Requested none ASA ASA3 Proposed Anesthesia Anesthesia Type: General NPO Date Last Intake of Fluids: 04/04/18 Time Last Intake of Fluids: 00:00 Date Last Intake of Solids: 04/04/18 Time Last Intake of Solids: 00:00 History Surgery Operation Date: 04/04/18 11:10 Proposed Procedures p Left Foot Metatarsal Head Excision, Irrigation and Debridement - Jenni Cazares DPM Height/Weight Height: 1.7 m Weight: 61 kg Allergies Allergy/AdvReac Type Severity Reaction Status Date / Time No Known Allergies Allergy Mild Verified 03/31/18 23:54 Medications Home Medications Medication Instructions Recorded Confirmed Last Taken insulin glargine [Lantus U-100 20 unit SUBCUT AMPM 03/31/18 04/02/18 03/31/18 Insulin] insulin lispro [Humalog KwikPen 0 units SUBCUT ACHS 03/31/18 04/02/18 03/31/18 Insulin] cephalexin [Keflex] 500 mg PO QID 10 Days #40 cap 04/01/18 04/02/18 04/02/18 12: 00 sulfamethoxazole-trimethoprim 1 tab PO Q12H #20 tab 04/01/18 04/02/18 04/02/18 10:00 [Bactrim DS] Active Medications Generic Name Dose Route Start Last Admin Trade Name Andrezq PRN Reason Stop Dose Admin Clotrimazole 1 appln 04/03/18 21:00 04/04/18 08:00 Lotrimin 1% EXT 04/10/18 22:00 1 appln BID CARLOS Administration Piperacillin Sod/Tazobactam 115 mls @ 28.75 mls/hr 04/03/18 02:00 04/04/18 07 :00 Sod 3.375 gm/ Dextrose IV 04/13/18 01:59 Infused Q8H CARLOS Infusion Protocol Vancomycin HCl 1,250 mg/ 275 mls @ 125 mls/hr 04/04/18 08:00 04/04/18 08:50 Sodium Chloride IV 04/13/18 07:59 125 mls/hr Q8H CARLOS Administration Insulin Aspart 0 units 04/04/18 06:00 04/04/18 06:11 Novolog Flexpen SC 05/04/18 05:59 3 units Q6 CARLOS Administration Protocol Insulin Glargine 20 units 04/04/18 09:00 04/04/18 10:17 Lantus Solostar Pen SQ 04/04/18 11:00 20 units QAM CARLOS Administration Protocol Miscellaneous 15 - 30 gm 04/02/18 19:27 04/03/18 17:08 Carbohydrates For Hypoglycemia PO 05/02/18 19:26 15 gm UD PRN Administration Hypoglycemia Treatment Miscellaneous 1 ea 04/02/18 21:00 04/03/18 21:10 Remove Nicoderm Patch N/A 05/02/18 20:59 Not Given HS CARLOS Nicotine 21 mg 04/02/18 19:27 04/04/18 07:56 Nicoderm Cq TD 05/02/18 19:26 Not Given QAM CARLOS Tramadol HCl 50 mg 04/03/18 09:16 04/03/18 09:43 Ultram PO 05/03/18 09:15 50 mg Q4H PRN Administration Pain Beta [place] Beta [place] Taken Within 24 Hours: No Past Medical History Medical History Smoking greater than 30 pack years DM type 1 (diabetes mellitus, type 1) H/o DKA with hospitalization since age 14 Diabetic ulcer of left foot (Acute) Diabetes Cellulitis (Acute) Past Family History Family History Other No significant family history Past Surgical History Surgical History S/P foot surgery, left I&D S/P knee surgery Past Anesthesia History No Hx of Anesthesia Complications and No Family Hx of Anesthesia Complications History of PONV No Motion Sickness Screening History of Motion Sickness: No Social History Smoking Status: Current every day smoker (1ppdx>20 years) tobacco type: cigarettes Smoking cigarettes per day: 20 Do You Dip or Chew Tobacco: No (Last chew 2 days ago) Hx Alcohol Use: Yes Alcohol type: beer alcohol intake frequency: holidays/special occasions only Hx Substance Use: No Exercise / Class Metabolic Activity II 4-5 Yardwork/Stairs/Walk up hill Physical Exam Vital Signs Last Vital Signs Temp 36.4 C L 04/04/18 07:31 Pulse 69 04/04/18 07:31 Resp 18 04/04/18 07:31 BP 103/62 04/04/18 07:31 Pulse Ox 98 04/04/18 07:31 ENMT Mouth: + dental caries and + poor dentition; no TMJ abnormality and no TMJ clicking Thyromental Distance: > or= 3.5 Finger Breadths Mallampati Class: II Neck + facial hair; neck extension not limited Respiratory Auscultation: lungs clear to auscultation bilaterally Cardiovascular Rate/Rhythm: regular rate and regular rhythm Psychiatric Orientation: alert and oriented x 3 Testing Laboratory Results 04/04/18 07:37 04/04/18 07:37 Hemoglobin A1c 11.3 % (4.5-5.6) H 04/03/18 05:19 04/03/18 11:00 Gram Stain - Final Foot Wound Culture - Preliminary Staphylococcus species Group B Beta Strep 04/03/18 16:00 Gram Stain - Final Foot,Left 04/04/18 04/04/18 04/04/18 10:16 06:02 03:42 POC Glucose 173 H 183 H 281 H 04/03/18 23:49 POC Glucose 272 H B
--- NOTE | 2018-04-04 10:06 | Infectious Disease Consult ---
Date of Consultation April 04, 2018 Assessment & Plan (1) Acute osteomyelitis of left foot: Patient with osteomyelitis of the left foot with cellulitis and abscess formation, with cultures growing methicillin sensitive staph aureus and group B streptococcus. Agree with need for operative intervention, will continue patient on current antibiotics of vancomycin and Zosyn pending final culture results. Will adjust once available. Will likely require prolonged antibiotic therapy after discharge. Will discuss with all involved. Will follow. (2) Group B streptococcal infection: (3) MSSA (methicillin susceptible Staphylococcus aureus) infection: History of Present Illness Reason for Consultation: Osteomyelitis Attending Physician: Dc Abreu History of Present Illness 42-year-old male with longstanding diabetes mellitus with poor control, chronic kidney disease, long-time smoker, who has had several weeks of non he left foot ulcer. Previously has undergone amputation of toes for the gangrene and persistent infection. He was seen earlier at the emergency room for infected foot ulcer, and was given IV Rocephin and discharged on Bactrim and cephalexin. However he has had increasing drainage, pain and swelling with worsening necrotic changes, and came back to the emergency department and was admitted for further management. Imaging the foot shows evidence of osteomyelitis with possible abscess collections. He is now awaiting surgical debridement with Podiatry. Cultures have grown methicillin sensitive Staph aureus and group B Streptococcus. Patient currently being treated with IV vancomycin and Zosyn. No report of significant fever. Allergies Allergy/AdvReac Type Severity Reaction Status Date / Time No Known Allergies Allergy Mild Verified 03/31/18 23:54 Home Medications Home Medications Medication Instructions Recorded Confirmed Type insulin glargine [Lantus U-100 20 unit SUBCUT AMPM 03/31/18 04/02/18 History Insulin] insulin lispro [Humalog KwikPen 0 units SUBCUT ACHS 03/31/18 04/02/18 History Insulin] cephalexin [Keflex] 500 mg PO QID 10 Days #40 cap 04/01/18 04/02/18 Rx sulfamethoxazole-trimethoprim 1 tab PO Q12H #20 tab 04/01/18 04/02/18 Rx [Bactrim DS] Patient History Medical History Smoking greater than 30 pack years DM type 1 (diabetes mellitus, type 1) H/o DKA with hospitalization since age 14 Diabetic ulcer of left foot (Acute) Diabetes Cellulitis (Acute) Surgical History S/P foot surgery, left I&D S/P knee surgery Family History Other No significant family history Social History marital status: Current Living Situation: Significant Other current occupational status: employed Other Information That Helps Us Care for You: No Feels Safe at Home: Yes Safety Concerns: Feels Safe At This Time Smoking Status: Current every day smoker (1ppdx>20 years) Tobacco Type: cigarettes Cigarettes per Day: 20 Do You Dip or Chew Tobacco: No (Last chew 2 days ago) Hx Alcohol Use: Yes Alcohol type: beer Alcohol Intake Frequency: holidays/ special occasions only Hx Substance Use: No Beliefs That Will Affect Care: None Communication Ability: Effective Review of Systems All systems were reviewed and are negative except as per HPI Physical Exam 2 Vital Signs (Past 24 Hours): Last Vital Signs Temp 36.4 C L 04/04/18 07:31 Pulse 69 04/04/18 07:31 Resp 18 04/04/18 07:31 BP 103/62 04/04/18 07:31 Pulse Ox 98 04/04/18 07:31 Constitutional: WD/WN, vitals as above comfortable; no acute distress Eyes: PERRL, conjunctivae normal, anicteric sclerae ENMT: external ear and nose normal, oropharynx normal Neck: trachea midline, no thyromegaly neck nontender Respiratory: normal respiratory effort, lungs clear to auscultation normal percussion; does not use accessory muscles Cardiovascular: Rate/Rhythm: regular rate and regular rhythm Heart Sounds: normal S1 and normal S2; no gallop, no murmur and no cardiac rub Vessels: normal peripheral pulses; no JVD Gastrointestinal (Abdomen): normal bowel sounds, soft, nontender, no hepatosplenomegaly Musculoskeletal: Head/Neck/Chest: normocephalic and head atraumatic Spine: no cervical spinal tenderness, no thoracic spinal tenderness and no lumbar spinal tenderness Status post 1st and 5th toe amputations left foot with ulcers both sites. Skin: no rashes, warm and dry + ulcer Neurologic: patellar DTR's 2+ bilat, sensation intact no focal motor deficits Psychiatric: A+Ox3, euthymic affect Orientation: cooperative Lymphatic: no cervical or axillary lymphadenopathy no inguinal lymphadenopathy Results & Data Laboratory Results Short CBC 04/04/18 Range/Units 07:37 WBC 10.93 H (4.8-10.8) K/uL Hgb 12.6 L (14.0-18.0) g/dL Hct 38.6 L (42-52) % Plt Count 423 H (130-400) K/uL BMP 04/04/18 07:37 Sodium 140 Potassium 4.1 Chloride 106 Carbon Dioxide 27 BUN 15 Creatinine 0.89 Glucose 219 H Calcium 8.4 L Liver Function 04/04/18 Range/Units 07:37 Total Bilirubin 0.3 (0.1-1) mg/dl AST 17 (15-37) U/L ALT 71 (12-78) U/L Alkaline Phosphatase 293 H (45-117) U/L Albumin 2.6 L (3.4-5.0) gm/dl Diagnostic Findings Microbiology 04/03/18 16:00 Foot,Left Gram Stain - Final 04/03/18 16:00 Foot,Left Deep Wound Culture - Preliminary Group B Beta Strep Staphylococcus species 04/03/18 11:00 Foot Gram Stain - Final 04/03/18 11:00 Foot Wound Culture - Preliminary Staphylococcus species Group B Beta Strep MRI OF THE LEFT FOOT WITHOUT CONTRAST CLINICAL HISTORY: Evaluate for first and fifth digit osteomyelitis. Infection. COMPARISON STUDY: Left foot radiographs April 01, 2018. MRI of the left foot February 15, 2013. TECHNIQUE: Utilizing a 1.5 Gillian magnet, multiplanar, multiecho imaging of the left foot was performed without intravenous contrast. FINDINGS: Note is made of amputation of the first and fifth digits at the level of the metatarsophalangeal joints. There is marrow edema throughout the left fifth metatarsal with markedly diminished T1 signal within the left fifth metatarsal head consistent with osteomyelitis. Note is made of an subjacent 2 x 2.1 x 0.5 cm fluid collection along the lateral aspect of the left fifth metatarsal head suggestive of an abscess. Note is made of an additional 1.5 x 0.8 cm fluid collection along the plantar medial aspect of the left fifth metatarsal suggestive of an additional abscess. Small hypodense foci adjacent to the amputation site within the left first digit likely reflects gas. There is also suspected gas adjacent to the fifth digit amputation site. Note is made of a 0.9 cm T2 1 hypointense focus within the dorsal distal aspect of the left first metatarsal head. There is marrow edema within the left first metatarsal. This suggests distal osteomyelitis. Chronic subluxation at the second and third metatarsophalangeal joints is noted. No additional sites of marrow edema are present. IMPRESSION: 1. Findings consistent with osteomyelitis of the left fifth metatarsal head likely extending into the distal metatarsal shaft. Two fluid collections adjacent to the fifth metatarsal suggest abscesses, as described above. 2. Findings suggestive of focal osteomyelitis of the dorsal left first metatarsal head with osteitis within the remainder of the left first metatarsal. 3. Status post amputation of the left first and fifth digits at the level the metatarsophalangeal joints. Suspected gas within the adjacent soft tissues. Electronically signed by: Antony Betancur M.D. 04/03/2018 2:28 PM Dictated: 04/03/18 1411 Transcribed: 04/03/18 1411
--- NOTE | 2018-04-04 10:13 | Hospitalist Progress Note ---
Date of Service April 04, 2018 Assessment & Plan (1) Gangrene of left foot: s/p amputation of 1st/5th metatarsal heads and debridement by Dr. Cazares today. numerous cultures to date with group B strep and MSSA. PICC consent obtained; lengthy course of IV antibiotics recommended by Dr. Cazares. ID also involved (Dr. Lizarraga). currently on IV zosyn and vanco. can likely d/c latter as MRSA not seen on cultures thus far. ABIs were obtained of legs. Although the left leg GILBERT was normal, the digital/brachial index was low. Thus, will obtain arterial doppler of left leg to exclude smaller vessel disease in the distal leg. needs to quit smoking. needs improved T1DM control. Present on Admission?: Yes (2) Acute osteomyelitis of left foot: first/5th metatarsals, s/p amputation/debridement today by Dr. Cazares. see her op note. IV antibiotics x 6 weeks possibly. Present on Admission?: Yes (3) MSSA (methicillin susceptible Staphylococcus aureus) infection: as seen on cultures (4) Group B streptococcal infection: as seen on cultures (5) Smoking greater than 30 pack years: tobacco cessation desperately needed sexual assault counsellor to quit check lipids in am (6) Uncontrolled type 1 diabetes mellitus: pharmacy managing assistance appreciated defer management of insulin to them overall needs better long-term control (7) DVT prophylaxis: add heparin SC tomorrow Subjective patient NPO for podiatric surgery of the left foot today he c/o mild pain in that foot only no other complaints we went through the consent process for PICC line Constitutional: no fever and no chills Respiratory: no cough, no dyspnea and no dyspnea on exertion Cardiovascular: no chest pain, no dyspnea at rest, no orthopnea and no paroxysmal nocturnal dyspnea Gastrointestinal: no abdominal pain, no nausea, no vomiting and no diarrhea/ loose stools Physical Exam 2 Vital Signs (Past 24 Hours): Last Vital Signs Temp 36.4 C L 04/04/18 07:31 Pulse 69 04/04/18 07:31 Resp 18 04/04/18 07:31 BP 103/62 04/04/18 07:31 Pulse Ox 98 04/04/18 07:31 Constitutional: + thin; no acute distress and not ill appearing ENMT: external ear and nose normal, oropharynx normal Respiratory: normal respiratory effort, lungs clear to auscultation Cardiovascular: RRR, no murmur, no edema Heart Sounds: normal S1 and normal S2 Vessels: posterior tibial pulses present and dorsalis pedis pulses present; no JVD Gastrointestinal (Abdomen): normal bowel sounds, soft, nontender, no hepatosplenomegaly Musculoskeletal: left foot - digits 1 and 5 absent; ulcerations present over heads of both metatarsals #1/5; no significant drainage Psychiatric: A+Ox3, euthymic affect Results & Data Laboratory Results Laboratory Results - last 24 hr 04/03/18 04/03/18 04/03/18 11:41 16:56 17:49 WBC RBC Hgb Hct MCV MCH MCHC RDW Std Deviation RDW Coeff of Shauna Plt Count MPV Sodium Potassium Chloride Carbon Dioxide Anion Gap BUN Creatinine Est Cr Clr Drug Dosing Est GFR ( Amer) Est GFR (Non-Af Amer) BUN/Creatinine Ratio Glucose POC Glucose 260 H 61 L* 154 H Calcium Total Bilirubin AST ALT Alkaline Phosphatase Total Protein Albumin Globulin Albumin/Globulin Ratio Vancomycin Trough 04/03/18 04/03/18 04/03/18 20:41 23:12 23:49 WBC RBC Hgb Hct MCV MCH MCHC RDW Std Deviation RDW Coeff of Shauna Plt Count MPV Sodium Potassium Chloride Carbon Dioxide Anion Gap BUN Creatinine Est Cr Clr Drug Dosing Est GFR ( Amer) Est GFR (Non-Af Amer) BUN/Creatinine Ratio Glucose POC Glucose 197 H 272 H Calcium Total Bilirubin AST ALT Alkaline Phosphatase Total Protein Albumin Globulin Albumin/Globulin Ratio Vancomycin Trough 10.9 04/04/18 04/04/18 04/04/18 03:42 06:02 07:37 WBC 10.93 H RBC 4.32 L Hgb 12.6 L Hct 38.6 L MCV 89.4 MCH 29.2 MCHC 32.6 RDW Std Deviation 43.6 RDW Coeff of Shauna 13.3 Plt Count 423 H MPV 10.1 Sodium Potassium Chloride Carbon Dioxide Anion Gap BUN Creatinine Est Cr Clr Drug Dosing Est GFR ( Amer) Est GFR (Non-Af Amer) BUN/Creatinine Ratio Glucose POC Glucose 281 H 183 H Calcium Total Bilirubin AST ALT Alkaline Phosphatase Total Protein Albumin Globulin Albumin/Globulin Ratio Vancomycin Trough 04/04/18 07:37 WBC RBC Hgb Hct MCV MCH MCHC RDW Std Deviation RDW Coeff of Shauna Plt Count MPV Sodium 140 Potassium 4.1 Chloride 106 Carbon Dioxide 27 Anion Gap 7.0 BUN 15 Creatinine 0.89 Est Cr Clr Drug Dosing 95.2 Est GFR ( Amer) 124.0 Est GFR (Non-Af Amer) 107.0 BUN/Creatinine Ratio 16.9 Glucose 219 H POC Glucose Calcium 8.4 L Total Bilirubin 0.3 AST 17 ALT 71 Alkaline Phosphatase 293 H Total Protein 6.8 Albumin 2.6 L Globulin 4.2 H Albumin/Globulin Ratio 0.6 L Vancomycin Trough Diagnostic Findings multiple cultures with MSSA and Group B strep _ (1) Uncontrolled type 1 diabetes mellitus Glycemic state: with hyperglycemia Qualified Code(s): E10.65 - Type 1 diabetes mellitus with hyperglycemia
[2018-04-04] MEDS ORDERED: PROPOFOL IV EMULSION 10 MG/ML 20 ML VIAL IV ONE ×2 (10:14→12:50)
[2018-04-04] MEDS ORDERED: LIDOCAINE HCL 2% 2 ML VIAL/AMP(20MG/ML) INFIL ONE ×2 (10:15)
[2018-04-04] MEDS ORDERED: fentaNYL citrate 100 MCG/2 ML VIAL ONE (10:16)
[2018-04-04] MEDS ORDERED: MIDAZOLAM HCL 1 MG/ML 2ML VIAL ONE (10:16)
--- NOTE | 2018-04-04 10:26 | Pharmacy Report ---
Pharmacy Glycemic Short Note 2 - Date of Service April 04, 2018 - Glycemic Short BSG Results (Last 24 hours): 04/03/18 04/03/18 04/03/18 11:41 16:56 17:49 Glucose POC Glucose 260 H 61 L* 154 H 04/03/18 04/03/18 04/04/18 20:41 23:49 03:42 Glucose POC Glucose 197 H 272 H 281 H 04/04/18 04/04/18 06:02 07:37 Glucose 219 H POC Glucose 183 H Assessment & Plan: ASSESSMENT: 04-04: * Patient required total of 77 units of insulin yesterday, 45 units of which were basal insulin * Patient with low BSG of 61 mg/dL yesterday afternoon - unclear to reasoning for lower BSG, carbs for lunch yesterday were lower ; spoke with nurse today to see if anything was passed along/or if hypoglycemia protocol followed - she was not aware of it /does not see any nurses notes; does not appear level treated * Despite the lower BSG, BSGs trended up very quickly yesterday - coverage provided overnight due to elevated BSGs * Patient is NPO this morning for the OR - Fasting BSG this am elevated at 219 mg/dL - will give home dose of Lantus of 20 units since patient DM1 and continue with scale for this evening * Patient remains on antibiotics - osteomyelitis confirmed with MRI 04-03: * 42 year old type 1 diabetic admitted with diabetic foot infection. Concern for possible osteomyelitis, currently on vancomycin and zosyn. A1c of 11.3 indicates poor control at home. Per provider notes, patient states his BSGs have been in the 200s on most days. * Pharmacy consulted today for glucose management - suspect hyperglycemia on admission due to infection * Fasting BSG this morning elevated at 216 mg/dL, then at lunchtime at 260 mg/ dL - already received Lantus 20 units this morning (his usual home dose) and also sliding scale coverage * Will further tighten dinner time CF/CR and also adjust bedtime Lantus dosing PLAN FOR INPATIENT GLYCEMIC CONTROL * Basal insulin - ordered Lantus 20 units x 1 this morning (their usual home dose) * Then Lantus BID per scale starting tonight -For BSG less than 180 - give 20 units of Lantus -For BSG 180 mg/dL or greater - give 25 units of Lantus * Bolus insulin - continue same ; added overnight check * NovoLog per scale ACHS or Q6hrs while NPO * Goal Range: Low 110 mg/dL - High 140 mg/dL * Correction Factor: 20 mg/dL/unit * Nutritional / Prandial insulin per carb ratio of 1 unit per 8 grams CHO consumed
[2018-04-04] MEDS ORDERED: BUPIVACAINE/EPINEPHRINE 0.5% MPF 1:200,000 30 ML VIAL ONE (10:31)
--- NOTE | 2018-04-04 10:33 | Pharmacy Report ---
Pharmacy Abx Dose Short Note - Date of Service April 04, 2018 - Assessment & Plan Assessment/Plan: Pharmacy consulted for vancomcyin and zosyn. MRI confirmed osteomyelitis of left foot. ID is now consulted to follow patient, likely will require prolonged antibiotic therapy. Patient to go to OR today for debridement. Vancomycin: * Trough level last evening came back subtherapeutic at 11 mcg/ml (goal closer ~ 20 mcg/ml for bone infection); Level was drawn slightly before steady state therefore anticipate true level slightly higher * Will increase to vancomycin 1250 mg iv q 8 hrs to target higher trough * Scr stable, slightly improved today - CrCl ~95 ml/min - appears to be baseline * Will plan to obtain a trough prior to the 0800 dose on 04/05 to ensure therapeutic Zosyn: * 3.375 gm iv q 8 hrs - appropriate for CrCl >20 ml/min; no change Pharmacy will continue to follow and will adjust dose/frequency as necessary. Thank you.
[2018-04-04] MEDS ORDERED: PHENYLEPHRINE 100MCG/ML 5ML SYR IV PRN (10:44)
[2018-04-04] MEDS ORDERED: fentaNYL citrate 100 MCG/2 ML VIAL IV PRN (10:44)
[2018-04-04] MEDS ORDERED: PROMETHAZINE HCL 12.5 MG in SODIUM CHLORIDE 0.9% 50 ML IV PRN (10:44)
[2018-04-04] MEDS ORDERED: ONDANSETRON INJ 2 MG/ML 2 ML VIAL IV PRN (10:44)
[2018-04-04] MEDS ORDERED: HYDROmorphone INJ 1 MG/ML SYRINGE IV PRN (10:44)
[2018-04-04] MEDS ORDERED: ePHEDrine sulfate 50 MG/ML AMP IV PRN (10:44)
[2018-04-04] MEDS ORDERED: ATROPINE SULFATE 0.1 MG/ML 5ML SYR IV PRN (10:44)
[2018-04-04] MEDS ORDERED: BACITRACIN INJ 50,000 UNIT VIAL ONE (11:16)
[2018-04-04] MEDS ORDERED: BUPIVACAINE 0.5 % 5 MG/1 ML MPF 30ML VIAL ONE (11:36)
--- NOTE | 2018-04-04 11:39 | Consultation Report ---
DATE OF CONSULTATION: 04/04/2018 CONSULT FOLLOWUP Patient was seen at bedside this morning. Discussed a PICC line followed by 6 weeks of IV antibiotics and surgery scheduled for today. I reviewed procedures and complications of the PICC line, consent was signed at bedside. We discussed the circulation and decreased blood flow to his left leg is 40% of what is in his arm and recommended that he be seen by vascular surgery. Discussed seeing Dr. Wellington possibly later today or during this admission. Instructed the patient most likely he would not heal the surgery that was going to be performed; however, I recommended removing infected bone and soft tissue at this time, followed by antibiotics and hopeful revascularization. We discussed the decreased blood flow secondary to the changes from the smoking and diabetes at length. We reviewed the procedures, risks, and complications for: 1. An I and D left foot. 2. Removal of infected bone and soft tissue with amputation left first and fifth metatarsals. No guarantees were given to the patient. Patient is scheduled to undergo this later on today. The procedures and complications were fully reviewed with the patient. Consent form and foot diagram were reviewed in their entirety and all the patient's questions were answered. Complications were discussed in detail with the patient including pain, infection, swelling that may or may not be excessive, pins and needles feeling, numbness, metatarsalgia, excessive bleeding, delayed healing of skin, enlarged scar, failure of the procedure, reoccurrence or worsening condition which may or may not require further surgery, adverse reaction to anesthesia, allergic reaction to suture or other implant material, loss of proximal foot or leg, flail toe, stiff toe, short toe, problems with remaining toes, transfer lesion or callus, peripheral neurovascular complications such as phlebitis, damage to nerves or vascular structures, significant chronic pain, chronic nerve pain or damage, and general medical complications. Patient will be required to be in an IPOS shoe until the incision heals, which may not occur at the blood flow level today. He will never return to dress shoes. Patient is aware this is an elective procedure and I recommended a second opinion. He stated he understood. Consent form was signed with a copy of foot diagram issued to the patient. Verbal and written postop instructions were given. Patient will be required to be on an IPOS shoe with good glucose control for a minimum of 3-6 weeks and never return to dress shoes. Patient most likely will need revascularization; however, given the infection at this time recommended we proceed with surgery.
--- NOTE | 2018-04-04 11:46 | History & Physical Bridge Note ---
Date of Service April 04, 2018 History & Physical Bridge Note I have examined the patient, reviewed the History & Physical and in the interval since the performance of the History & Physical I have noted the following changes of clinical significance: no changes noted Reviewed PRC and informed patient after review MRI with radiologist Recommend taking almost if not all of the 5th metatarsal
[2018-04-04] MEDS ORDERED: LACTOBACILLUS ACIDOPHILUS (FLORANEX) TAB PO SCH (12:00)
[2018-04-04] MEDS ORDERED: KETAMINE HCL INJ 50 MG/ML 10 ML VIAL ONE (12:14)
--- NOTE | 2018-04-04 13:08 | Operative Report ---
Post Operative Report Date of Surgery April 04, 2018 Pre & Post Diagnosis Operation Date: 04/04/18 11:10 Pre-Op Diagnosis: Left foot osteomyelitis, left foot gas gangrene Post-Op Diagnosis: Left foot osteomyelitis, left foot gas gangrene Pre-Op Diagnosis: Left foot osteomyelitis, left foot gas gangrene Post-Op Diagnosis: Left foot osteomyelitis, left foot gas gangrene Procedure Operation Date: 04/04/18 11:10 Actual Procedures p removal of infected bone and soft tissue with amputation of left 1st and 5th metatarsals - Jenni Cazares DPM s Incision and drainage left foot - Jenni Cazares DPM p removal of infected bone and soft tissue with amputation of left 1st and 5th metatarsals - Jenni Cazares DPM s Incision and drainage left foot - Jenni Cazares DPM Surgeon Jenni Cazares DPM Electronic Repair Troubleshooter none Estimated Blood Loss 50 Findings Consistent with Post-Op Diagnosis Specimens soft tissue I attest to the content of the Intraoperative Record and any orders documented therein. Any exceptions are noted below.
--- NOTE | 2018-04-04 13:11 | Operative Report ---
Post Operative Report Date of Surgery April 04, 2018 Pre & Post Diagnosis Operation Date: 04/04/18 11:10 <No data on this case meets the specified criteria> Gas gangreen, Oseomyelitis Left foot L1,5 metatarsals, abscess, Leukocytosis with cellulitis Procedure Operation Date: 04/04/18 11:10 <No data on this case meets the specified criteria> I&D multiple areas L foot, Incision bone cortex L1 & 5th metatarsal, complete excision metatrsal heal L1st with seasmoids, resection L5th metatarsal to base left foot Surgeon Jenni Cazares, DPM Caramel Cutter Machine none Estimated Blood Loss 50 Findings Consistent with Post-Op Diagnosis Specimens bone & culture I attest to the content of the Intraoperative Record and any orders documented therein. Any exceptions are noted below.
--- NOTE | 2018-04-04 13:58 | Fluoroscopy Report ---
FL foot LT 2V CLINICAL HISTORY: LEFT METATARSAL HEAD EXCISION COMPARISON STUDY: MRI of the left foot April 03, 2018 and left foot radiograph April 01, 2018. FLUOROSCOPY TIME: 3 seconds. FLUOROSCOPIC IMAGES: 2. FINDINGS: These 2 images demonstrate post surgical findings consistent with first and fifth digit amp utations. There are no unexpected radiopaque foreign bodies. IMPRESSION: Fluoroscopic images demonstrating left first and fifth digit amputations. Electronically signed by: Antony Betancur M.D. 04/04/2018 1:57 PM
--- NOTE | 2018-04-04 14:07 | Anesthesiology Progress Note ---
Date of Service April 04, 2018 Anesthesia Post Procedure Vital Signs Vital Signs: Temp Pulse Pulse Pulse Resp BP BP 04/04/18 13:55 69 12 124/70 04/04/18 13:45 68 11 L 114/66 04/04/18 13:35 73 11 L 106/71 04/04/18 13:25 69 20 102/69 04/04/18 13:19 36.1 C L 70 15 104/65 04/04/18 10:40 36.8 C 70 20 115/73 04/04/18 07:31 36.4 C L 69 18 103/62 04/03/18 22:46 36.7 C 81 21 110/59 L 04/03/18 15:08 36.8 C 75 20 105/65 Pulse Ox 04/04/18 13:55 97 04/04/18 13:45 95 04/04/18 13:35 100 04/04/18 13:25 100 04/04/18 13:19 100 04/04/18 10:40 96 04/04/18 07:31 98 04/03/18 22:46 97 04/03/18 15:08 98 Pain Intensity Left Foot: Pain Intensity: 6 Notes Mental Status: alert / awake / arousable Patient Amnestic to Procedure: Yes Nausea / Vomiting: adequately controlled Pain: adequately controlled Airway Patency, RR, SpO2: stable & adequate BP & HR: stable & adequate Hydration State: stable & adequate Anesthetic Complications: no major complications apparent
--- NOTE | 2018-04-04 15:09 | Communication Note ---
Date of Service: April 04, 2018 Patient in OR. Will see tomorrow.
[2018-04-04] MEDS ORDERED: DEXTROSE 50% 50 ML SYRINGE IV PRN (15:52)
[2018-04-04] MEDS ORDERED: GLUCOSE 40% GEL 15 GM TUBE PO PRN (15:52)
[2018-04-04] MEDS ORDERED: GLUCOSE 10 TABS/TUBE PO PRN (15:53)
[2018-04-04] MEDS: HYDROCODONE/ACETAMOPHEN 5/325MG TAB PO PRN ×2 (16:29→21:57)
[2018-04-04] MEDS: INSULIN GLARGINE SOLOSTAR 100 UNITS/ML 3 ML PEN SQ SCH (21:03)
[2018-04-05] MEDS ORDERED: INSULIN ASPART 100 UNITS/ML 3 ML PEN SC SCH
[2018-04-05] MEDS: VANCOMYCIN HCL 1,250 MG in SODIUM CHLORIDE 0.9% 250 ML IV SCH ×2 (00:37→09:00)
[2018-04-05] MEDS: HYDROCODONE/ACETAMOPHEN 5/325MG TAB PO PRN ×3 (02:53→21:19)
[2018-04-05] MEDS: PIPERACILLIN/TAZOBACTAM 3.375 GM in DEXTROSE 5% 100 ML IV SCH ×2 (02:54→10:13)
[2018-04-05] MEDS ORDERED: VANCOMYCIN TROUGH ONE (07:30)
[2018-04-05 07:50] LABS: Hematocrit (blood only) 36.3 % (42-52); Hemoglobin 12.1 g/dL (14.0-18.0); Mean Corpuscular Hgb Conc 33.3 g/dL (32-36); Mean Corpuscular Volume 88.8 fL (80-100); Mean Platelet Volume 9.7 fL (7.4-10.4); Platelet Count 446 K/uL (130-400); RDW Coefficient of Variation 13.1 % (11.5-14.5); RDW Standard Deviation 42.7 fL (36.4-46.3); Red Blood Count 4.09 M/uL (4.7-6.1); White Blood Count 14.41 K/uL (4.8-10.8)
[2018-04-05 08:14] LABS: BUN Creatinine Ratio 15.5 (10-20); Calcium 8.5 mg/dl (8.5-10.1); Creatinine Clr Calc Pharmacy 100.9 ml/min; Est GFR (African American) 126.9; Est GFR (Non-African American) 109.5; Potassium 4.1 mmol/L (3.5-5.1)
--- NOTE | 2018-04-05 08:16 | Operative Report ---
DATE OF OPERATION: 04/04/2018 SURGEON: Jenni Cazares DPM TRACTOR MECHANIC APPRENTICE: None. PREOPERATIVE DIAGNOSES: 1. Osteomyelitis, left foot, left 1st and 5th metatarsals. 2. Gas gangrene. 3. Abscess, multiple, left foot. 4. Leukocytosis with cellulitis, left foot. 5. Chronic subluxation, left second and third MTPJ. ANESTHESIA: IV with local field block, 0.5% Marcaine plain, total of 30 mL. PROCEDURES: 1. I and D, multiple areas, left foot. 2. Incision of bone cortex, left 1st metatarsal; excision of bone cortex, left 5th metatarsal; complete excision left 1st metatarsal head; resection of left 5th metatarsal head and shaft to the base; secondary closure, left 1st and 5th. SURGICAL WOUNDS: Extensive. HEMOSTASIS: None. MATERIALS: 2-0 and 4-0 nylon, 3-0 Vicryl suture, bolsters, and iodoform packing. HISTOPATHOLOGY: Bone and culture sent. IRRIGATION: 3000 units of normal saline with 50,000 units of bacitracin. COMPLICATIONS: None. LONG-TERM PLAN: The patient will be readmitted to the floor for continued empiric antibiotics. Recommended 6 weeks of IV antibiotics. DESCRIPTION OF PROCEDURE: The patient was brought to the OR and placed on the OR table in supine position. It should be noted prior to this in the preop holding area, I discussed with the case further resection than previously described of the fifth metatarsal and review of the MRI findings with the radiologist. This was done due to the large abscess noted between the fourth and fifth metatarsals as well as the remainder of the fifth metatarsal bone involvement noted on the MRI. The patient was brought to the OR and placed on the OR table in supine position. Upon completion of IV sedation by the anesthesia department, a local field block was performed with 30 mL of 0.5% Marcaine plain. The foot was scrubbed, prepped, and draped in the usual aseptic fashion. Attention was directed to the left foot where incision was made over the first and fifth metatarsals. The first metatarsal was resected back to the metatarsal neck level. The fifth metatarsal was resected back to the base, leaving the peroneus brevis attachment still noted. There was good hard bone resection noted at both of these resection points. The abscesses were irrigated and removed. The irrigation was performed with 3000 units of normal saline with 50,000 units of bacitracin. There was adequate bleeding, however, diminished from what would be expected for a patient of this age with the amount of bone resection that was performed. Fluoroscan was used to examine the resection sites and closure then began with 3-0 Vicryl in subcuticular fashion. Skin margins were closed using 2-0 nylon and 4-0 nylon with suture bolsters in a simple interrupted and horizontal mattress type fashion. There was packing over the first metatarsophalangeal joint, iodoform. The previous ulcerations were not closed, these were packed if not excised during the surgery over the first ray due to the length of time that they had possibly been opened. Incisional area was closed; however, the previous ulcer sites were packed with the Iodoform Nu Gauze. Dry sterile compressive dressing consisting of Adaptic, 4 x 4s, ABDs, Kerlix, and Garry was applied. The patient will be readmitted to the floor for IV antibiotics. I attest to the content of the Intraoperative Record and any orders documented therein. Any exception s are noted below.
[2018-04-05] MEDS: INSULIN ASPART 100 UNITS/ML 3 ML PEN SC SCH ×4 (08:52→21:20)
[2018-04-05] MEDS: INSULIN GLARGINE SOLOSTAR 100 UNITS/ML 3 ML PEN SQ SCH ×3 (08:54→21:21)
--- NOTE | 2018-04-05 08:56 | Pharmacy Report ---
Pharmacy Abx Dose Short Note - Date of Service April 05, 2018 - Assessment & Plan Assessment 42 year old M receiving Vancomycin and Zosyn for treatment of osteomyelitis Day # 4 of antimicrobial therapy. Patient went to OR yesterday for I & D left foot, multiple areas; 1st metatarsal resected back to metatarsal neck level; 5th metatarsal resected back to base. Plan Vancomycin * Trough level of 15.5 mcg/mL is therapeutic * Continue dose of 1250 mg IV every 8hours * Goal trough level for osteomyelitis : 15 to 20 mcg/mL * Trough or random level ordered for: 04/06/18 @ 1530 Pharmacy will continue to follow and will adjust dose/frequency as necessary. Thank you.
--- NOTE | 2018-04-05 09:25 | Pharmacy Report ---
Pharmacy Glycemic Short Note 2 - Date of Service April 05, 2018 - Glycemic Short BSG Results (Last 24 hours): 04/04/18 04/04/18 04/04/18 10:16 10:35 13:21 Glucose POC Glucose 173 H 175 H 169 H 04/04/18 04/04/18 04/04/18 15:09 16:47 17:29 Glucose POC Glucose 184 H 184 H 235 H 04/04/18 04/05/18 04/05/18 20:40 00:30 07:24 Glucose 101 H POC Glucose 303 H 142 H 04/05/18 07:42 Glucose POC Glucose 99 Assessment & Plan: ASSESSMENT: 04-05: * Patient required total of 75 units of insulin yesterday, 45 units of which were basal insulin * Went to OR yesterday - Had high BSG last evening (303 mg/dL). Overnight check was 142 mg/dL and am BSG today is 99 mg/dL. * Will change Lantus to 20 units BID instead of 20 units in the am with dosing scale HS. * Will tighten carb ratio to 1 unit per 7 grams CHO consumed. * Patient remains on antibiotics for osteomyelitis. 04-04: * Patient required total of 77 units of insulin yesterday, 45 units of which were basal insulin * Patient with low BSG of 61 mg/dL yesterday afternoon - unclear to reasoning for lower BSG, carbs for lunch yesterday were lower ; spoke with nurse today to see if anything was passed along/or if hypoglycemia protocol followed - she was not aware of it /does not see any nurses notes; does not appear level treated * Despite the lower BSG, BSGs trended up very quickly yesterday - coverage provided overnight due to elevated BSGs * Patient is NPO this morning for the OR - Fasting BSG this am elevated at 219 mg/dL - will give home dose of Lantus of 20 units since patient DM1 and continue with scale for this evening * Patient remains on antibiotics - osteomyelitis confirmed with MRI 04-03: * 42 year old type 1 diabetic admitted with diabetic foot infection. Concern for possible osteomyelitis, currently on vancomycin and zosyn. A1c of 11.3 indicates poor control at home. Per provider notes, patient states his BSGs have been in the 200s on most days. * Pharmacy consulted today for glucose management - suspect hyperglycemia on admission due to infection * Fasting BSG this morning elevated at 216 mg/dL, then at lunchtime at 260 mg/ dL - already received Lantus 20 units this morning (his usual home dose) and also sliding scale coverage * Will further tighten dinner time CF/CR and also adjust bedtime Lantus dosing PLAN FOR INPATIENT GLYCEMIC CONTROL * Basal insulin - * Decrease Lantus 20 units BID * Bolus insulin - tightened carb ratio * NovoLog per scale ACHS or Q6hrs while NPO * Goal Range: Low 110 mg/dL - High 140 mg/dL * Correction Factor: 20 mg/dL/unit * Nutritional / Prandial insulin per carb ratio of 1 unit per 7 grams CHO consumed
--- NOTE | 2018-04-05 10:14 | Progress Note ---
DATE: 04/05/2018 SUBJECTIVE: The patient seen at bedside. Notes moderate amount of pain yesterday evening Presents with questions regarding of when he can be discharged. Denies fevers, chills and night sweats. PHYSICAL EXAMINATION: VITAL SIGNS: BP 92/54, pulse 79, respirations 16, temperature 37.3, O2 sat 95 on room air. LOWER EXTREMITY: Vascular, minimal edema noted over the amp sites. Copious amount of bloody drainage noted in the wound, good cap refill noted to the operative sites, distal left first and left fifth. DERMATOLOGIC: Sutures intact. Packing intact. No malodor. No purulence noted. Mild redness noted around the incisional areas. Epicritic sensation diminished. MUSCULOSKELETAL: Amputation of left first metatarsal level and left fifth proximal, remaining base of the peroneal brevis attachment only. IMPRESSION: 1. Status post I and D with partial removal left first and fifth metatarsals, postoperative day #1. 2. Cellulitis with leukocytosis, left foot. 3. Poorly-controlled diabetic with peripheral vascular disease and peripheral neuropathy, history of smoking. TREATMENT: Dressing changed at bedside. Recommended IV antibiotics, stop date being May 17 6 weeks status post surgery. Instructed the patient, he may be weightbearing in IPOS shoe on the heel to keep the dressing clean, dry and intact, may be changed by physicians to evaluate the site; however, we would leave packing intact, the iodoform packing over the amp site. From a podiatry standpoint, the patient can be discharged home on IV antibiotics. We will follow up next week. We will see him in the hospital if still in the hospital or would recommend following up as an outpatient at my office.
--- NOTE | 2018-04-05 12:23 | Consultation ---
Date of Consultation April 05, 2018 Assessment & Plan (1) Gangrene of left foot: Pt discussed with Dr Wellington. No Arterial US performed at this time. Further recs pending US results. D/T upcoming holiday, if pt were to need vascular intervention, would be able to schedule as outpt or recommend transfer to different hospital if needed prior to Dr Wellington being available. Present on Admission?: Yes History of Present Illness Reason for Consultation: LLE nonhealing wound/Infection Attending Physician: Dc Abreu History of Present Illness 42 yo m with hx of DMI, admitted with L foot wound infection/nonhealing wound, seen in consultation today for possible PAD contrubuting to nonhealing. Pt underwent LLE I&D and partial removal of MT by podiatry yesterday. States his wound began about 3 months ago and he has continued to work even while under treatment. States it became more infected recently and agreed to undergo surgery. No US has yet been performed, and GILBERT were difficult to assess d/t noncompressability. Pt denies claudication and states is very active. Denies WEIR, fever, chills, chest pain, SOB, abd pain, N/V, rest pain, other complaints. Allergies Allergy/AdvReac Type Severity Reaction Status Date / Time No Known Allergies Allergy Mild Verified 03/31/18 23:54 Home Medications Home Medications Medication Instructions Recorded Confirmed Type insulin glargine [Lantus U-100 20 unit SUBCUT AMPM 03/31/18 04/02/18 History Insulin] insulin lispro [Humalog KwikPen 0 units SUBCUT ACHS 03/31/18 04/02/18 History Insulin] cephalexin [Keflex] 500 mg PO QID 10 Days #40 cap 04/01/18 04/02/18 Rx sulfamethoxazole-trimethoprim 1 tab PO Q12H #20 tab 04/01/18 04/02/18 Rx [Bactrim DS] Patient History Medical History Smoking greater than 30 pack years DM type 1 (diabetes mellitus, type 1) H/o DKA with hospitalization since age 14 Diabetic ulcer of left foot (Acute) Diabetes Cellulitis (Acute) Surgical History S/P foot surgery, left I&D S/P knee surgery Family History Other No significant family history Social History marital status: Current Living Situation: Significant Other current occupational status: employed Other Information That Helps Us Care for You: No Feels Safe at Home: Yes Safety Concerns: Feels Safe At This Time Smoking Status: Current every day smoker (1ppdx>20 years) Tobacco Type: cigarettes Cigarettes per Day: 20 Do You Dip or Chew Tobacco: No (Last chew 2 days ago) Hx Alcohol Use: Yes Alcohol type: beer Alcohol Intake Frequency: holidays/ special occasions only Hx Substance Use: No Beliefs That Will Affect Care: None Communication Ability: Effective Review of Systems Constitutional: no fever, no chills, no sweats, no fatigue, no malaise and no weight loss Eyes: no blind spots and no problem reported Ear, Nose, Mouth, Throat: no hearing loss and no sore throat Respiratory: no cough, no dyspnea, no dyspnea on exertion and no hemoptysis Cardiovascular: no chest pain, no palpitations, no syncope, no claudication and no problem reported Gastrointestinal: no abdominal pain, no early satiety, no nausea, no vomiting, no cramping, no change in bowel habits, no diarrhea/loose stools and no blood in stools Musculoskeletal: no back pain, no joint pain, no swelling and no muscle weakness Integumentary: + non-healing lesions, + skin ulcer, + wounds and + erythema (L foot); no rash Neurologic: no localized weakness, no generalized weakness, no paralysis, no loss of sensation, no tingling, no numbness, no paresthesia, no seizure-like activity, no syncope, no headache(s) and no confusion Psychiatric: as per Subjective / HPI Hematologic / Lymphatic: no easy bleeding, no easy bruising, no coagulopathy, no night sweats and no unexplained weight loss Physical Exam 2 Vital Signs (Past 24 Hours): Last Vital Signs Temp 37.3 C 04/05/18 07:00 Pulse 79 04/05/18 07:00 Resp 16 04/05/18 07:00 BP 94/52 L 04/05/18 07:00 Pulse Ox 95 04/05/18 07:00 Constitutional: WD/WN, vitals as above well developed, well nourished, + ill appearing, + thin, + frail appearing, well groomed, + disheveled, cooperative and comfortable Eyes: PERRL, conjunctivae normal, anicteric sclerae EOM intact bilaterally ENMT: external ear and nose normal, oropharynx normal Ears: no hearing impairment Nose: no nasal discharge Throat: no posterior oropharynx abnormality Neck: trachea midline, no thyromegaly no tracheal deviation, no neck crepitus and neck nontender Respiratory: normal respiratory effort, lungs clear to auscultation able to speak in complete sentences; does not use accessory muscles, no cough, not tachypneic and no audible wheezes Auscultation: lungs clear to auscultation bilaterally and + diminished lung sounds; no rhonchi and no wheezes Cardiovascular: RRR, no murmur, no edema Rate/Rhythm: regular rate, regular rhythm, + bradycardic and + tachycardic Heart Sounds: no gallop and no murmur Vessels: + carotid bruit, normal peripheral pulses, femoral pulses present, posterior tibial pulses present (RLE +2, LLE unable to assess), dorsalis pedis pulses present (RLE +2, LLE not able to assess), brachial pulses present and radial pulses present Extremities: normal capillary refill Chest (Breasts): Chest: normal inspection of chest Gastrointestinal (Abdomen): Inspection/Auscultation: abdomen normal to inspection and normal bowel sounds; abdomen not distended and no abdominal edema Percussion/Palpation: abdomen soft; abdomen nontender, no guarding, abdomen not rigid and no abdominal mass Musculoskeletal: no cyanosis or clubbing, extremities motor strength 5/5 Head/Neck/Chest: normocephalic, head atraumatic and neck supple Extremities: extremities normal to inspection and + foot abnormality (LLE dressing in place, not removed today. ); + abnormal strength and no clubbing Skin: no rashes, warm and dry normal turgor and + wound (LLE dressing in place, not removed) Neurologic: moves all extremities and awake; no focal motor deficits Motor/ Sensory: no tremor and no sensory deficit Cranial Nerves: EOM intact bilaterally and normal facial strength Psychiatric: Orientation: alert, oriented x 3, oriented to person, oriented to place, oriented to time and cooperative Apperance: appropriately dressed, appropriately groomed and appeared stated age Affect: euthymic affect and + irritable affect Thought Process: goal directed thought process, linear/ logical thought process and clear/coherent thought process Cognition: recent memory grossly intact, remote memory grossly intact, attention grossly intact and language grossly intact Estimated Intelligence: average estimated intelligence Lymphatic: no lymphedema
--- NOTE | 2018-04-05 14:40 | Ultrasound Report ---
US arterial duplex LE LT HISTORY: 42 years-old Male gangrene peripheral arterial disease of the left lower extremity. COMPARISON: Duplex arterial study 09/02/2012 TECHNIQUE: Multiple real-time sonographic images of the left lower extremity arterial structures were obtained assessing grayscale appearance, color and spectral flow FINDINGS: Mildly enlarged left inguinal lymph nodes measure up to 3.2 x 2.1 x 1.1 cm. Calcified plaque formation noted about the left lower coronary arterial structures. Triphasic wavefor ms noted within the common femoral, profunda femoris, superficial femoral and proximal popliteal ladonna lamonte. Biphasic waveforms noted within the distal popliteal artery with elevated peak systolic velocit ies of 159 cm/s. Biphasic waveforms seen within the anterior tibial, and posterior tibial arteries. Triphasic waveform s seen within the peroneal artery. Biphasic waveforms noted within the dorsalis pedis artery with sanchez vated peak systolic velocities measuring up to 132 cm/s. IMPRESSION: 1. No evidence of arterial occlusion. 2. Peripheral arterial calcifications are noted with elevated peak systolic velocities within the pop liteal and dorsalis pedis arteries suggesting areas of associated luminal narrowing. 3. Incidental note is made of mild left inguinal adenopathy. The above report was generated using voice recognition software. It may contain grammatical, syntax o r spelling errors. Electronically signed by: Ronald Ltaif M.D. 04/05/2018 2:38 PM
--- NOTE | 2018-04-05 15:17 | Infectious Disease Progress Nt ---
Date of Service April 05, 2018 Assessment & Plan (1) Acute osteomyelitis of left foot: Patient with osteomyelitis of the left foot with cellulitis and abscess formation, with cultures growing methicillin sensitive staph aureus and group B streptococcus. Patient now status post surgical debridement. Will change patient to IV ceftriaxone to allow easier outpatient therapy. Will continue to follow. (2) Group B streptococcal infection: (3) MSSA (methicillin susceptible Staphylococcus aureus) infection: Subjective Patient seen in follow-up for left foot abscess. Now status post partial amputation. Expected postoperative pain. Currently afebrile, operative cultures are pending. Review of Systems All systems reviewed & are unremarkable except as noted in HPI & below Physical Exam 2 Vital Signs (Past 24 Hours): Last Vital Signs Temp 37.3 C 04/05/18 07:00 Pulse 79 04/05/18 07:00 Resp 16 04/05/18 07:00 BP 94/52 L 04/05/18 07:00 Pulse Ox 95 04/05/18 07:00 Constitutional: WD/WN, vitals as above comfortable; no acute distress Eyes: PERRL, conjunctivae normal, anicteric sclerae ENMT: external ear and nose normal, oropharynx normal Neck: trachea midline, no thyromegaly neck nontender Respiratory: normal respiratory effort, lungs clear to auscultation normal percussion; does not use accessory muscles Cardiovascular: Rate/Rhythm: regular rate and regular rhythm Heart Sounds: normal S1 and normal S2; no gallop, no murmur and no cardiac rub Vessels: normal peripheral pulses; no JVD Gastrointestinal (Abdomen): normal bowel sounds, soft, nontender, no hepatosplenomegaly Musculoskeletal: Head/Neck/Chest: normocephalic and head atraumatic Spine: no cervical spinal tenderness, no thoracic spinal tenderness and no lumbar spinal tenderness Skin: no rashes, warm and dry + ulcer Neurologic: patellar DTR's 2+ bilat, sensation intact no focal motor deficits Psychiatric: A+Ox3, euthymic affect Orientation: cooperative Lymphatic: no cervical or axillary lymphadenopathy no inguinal lymphadenopathy Results & Data Laboratory Results Short CBC 04/05/18 Range/Units 07:24 WBC 14.41 H (4.8-10.8) K/uL Hgb 12.1 L (14.0-18.0) g/dL Hct 36.3 L (42-52) % Plt Count 446 H (130-400) K/uL BMP 04/05/18 07:24 Sodium 137 Potassium 4.1 Chloride 104 Carbon Dioxide 27 BUN 13 Creatinine 0.84 Glucose 101 H Calcium 8.5 Diagnostic Findings Microbiology 04/04/18 12:36 Foot,Left Gram Stain - Final 04/04/18 12:36 Foot,Left Aerobic and Anaerobic Culture - Preliminary Gram positive cocci 04/03/18 16:00 Foot,Left Gram Stain - Final 04/03/18 16:00 Foot,Left Deep Wound Culture - Preliminary Group B Beta Strep Staphylococcus species 04/03/18 11:00 Foot Gram Stain - Final 04/03/18 11:00 Foot Wound Culture - Preliminary Staphylococcus species Group B Beta Strep 04/03/18 12:33 Blood Blood Culture - Preliminary No growth to date. 04/03/18 12:26 Blood Blood Culture - Preliminary No growth to date.
[2018-04-05] MEDS: cefTRIAXone SODIUM 2,000 MG in DEXTROSE 5% 50 ML IV SCH (16:27)
--- NOTE | 2018-04-05 20:35 | Hospitalist Progress Note ---
Date of Service April 05, 2018 Assessment & Plan (1) Gangrene of left foot: s/p amputation of 1st/5th metatarsal heads and debridement by Dr. Cazares , podiatry - POD #1. numerous cultures to date with group B strep and MSSA. NO MRSA or gram negative pathogens. PICC obtained today; 6-week course of IV antibiotics recommended by Dr. Cazares. Dr. Lizarraga stopped zosyn/vanco and changed to once daily rocephin, 2 grams/day. Has mild PAD of popliteal and DP arteries of left leg. Likely does not need intervention. However, needs to quit smoking. Will add asa 81mg daily and lipitor 10mg daily for primary risk factor modification. needs improved T1DM control as well at home. (2) Acute osteomyelitis of left foot: first/5th metatarsals, s/p amputation/debridement by Dr. Cazares. see her op note. IV antibiotics x 6 weeks - see above. PICC in place - hopefully can arrange for home abx tomorrow. (3) MSSA (methicillin susceptible Staphylococcus aureus) infection: as seen on cultures (4) Group B streptococcal infection: as seen on cultures (5) Smoking greater than 30 pack years: tobacco cessation desperately needed loan counselor to quit (6) Uncontrolled type 1 diabetes mellitus: pharmacy managing assistance appreciated control is excellent at this time hopefully patient can replicate this control at home to prevent further complications (7) PAD (peripheral artery disease): as seen on arterial duplex of left leg today mild popliteal and DP artery disease doubt needs intervention by vascular surgery add 81mg aspirin daily add lipitor 10mg daily (8) DVT prophylaxis: Heparin SC fiancee updated at bedside will involve social work tomorrow if insurance approves of home IV abx and home health can be arranged can d/c home tomorrow - everything hinges on whether we can get this done given tomorrow is Sunday Subjective patient very upset during the visit that he would not be discharged home today, stating "you guys told me I would be here one or two days" he was agitated, and at one point ripped off his gown. fortunately his fiancee was present and was able to calm him down. ultimately he agreed to stay. I promised him I would contact SW first thing tomorrow and inquire about feasibility of getting him IV abx as outpatient at home. I did not promise a d/c home tomorrow in the event abx could not be arranged. he did not have any specific complaints. Constitutional: no fever and no chills Respiratory: no cough and no dyspnea Cardiovascular: no chest pain, no dyspnea at rest and no dyspnea on exertion Gastrointestinal: no abdominal pain and no diarrhea/loose stools Physical Exam 2 Vital Signs (Past 24 Hours): Last Vital Signs Temp 36.9 C 04/05/18 15:00 Pulse 77 04/05/18 15:00 Resp 18 04/05/18 15:00 BP 107/65 04/05/18 15:00 Pulse Ox 98 04/05/18 15:00 Constitutional: well developed, well nourished and + thin; no acute distress and not ill appearing ENMT: external ear and nose normal, oropharynx normal Respiratory: normal respiratory effort, lungs clear to auscultation Cardiovascular: RRR, no murmur, no edema Heart Sounds: normal S1 and normal S2 Vessels: posterior tibial pulses present and dorsalis pedis pulses present; no JVD Gastrointestinal (Abdomen): normal bowel sounds, soft, nontender, no hepatosplenomegaly Skin: left foot in large dressing Results & Data Laboratory Results Laboratory Results - last 24 hr 04/04/18 04/05/18 04/05/18 20:40 00:30 07:24 WBC 14.41 H RBC 4.09 L Hgb 12.1 L Hct 36.3 L MCV 88.8 MCH 29.6 MCHC 33.3 RDW Std Deviation 42.7 RDW Coeff of Shauna 13.1 Plt Count 446 H MPV 9.7 Sodium Potassium Chloride Carbon Dioxide Anion Gap BUN Creatinine Est Cr Clr Drug Dosing Est GFR ( Amer) Est GFR (Non-Af Amer) BUN/Creatinine Ratio Glucose POC Glucose 303 H 142 H Calcium Triglycerides Cholesterol LDL Cholesterol, Calc VLDL Cholesterol, Calc HDL Cholesterol Cholesterol/HDL Ratio Vancomycin Trough 04/05/18 04/05/18 04/05/18 07:24 07:24 07:42 WBC RBC Hgb Hct MCV MCH MCHC RDW Std Deviation RDW Coeff of Shauna Plt Count MPV Sodium 137 Potassium 4.1 Chloride 104 Carbon Dioxide 27 Anion Gap 6.0 BUN 13 Creatinine 0.84 Est Cr Clr Drug Dosing 100.9 Est GFR ( Amer) 126.9 Est GFR (Non-Af Amer) 109.5 BUN/Creatinine Ratio 15.5 Glucose 101 H POC Glucose 99 Calcium 8.5 Triglycerides 63 Cholesterol 96 LDL Cholesterol, Calc 55 VLDL Cholesterol, Calc 13 HDL Cholesterol 28 Cholesterol/HDL Ratio 3 Vancomycin Trough 15.5 04/05/18 04/05/18 04/05/18 11:53 16:54 20:29 WBC RBC Hgb Hct MCV MCH MCHC RDW Std Deviation RDW Coeff of Shauna Plt Count MPV Sodium Potassium Chloride Carbon Dioxide Anion Gap BUN Creatinine Est Cr Clr Drug Dosing Est GFR ( Amer) Est GFR (Non-Af Amer) BUN/Creatinine Ratio Glucose POC Glucose 155 H 88 208 H Calcium Triglycerides Cholesterol LDL Cholesterol, Calc VLDL Cholesterol, Calc HDL Cholesterol Cholesterol/HDL Ratio Vancomycin Trough Diagnostic Findings all cultures with MSSA and group B strep _ (1) Uncontrolled type 1 diabetes mellitus Glycemic state: with hyperglycemia Coma presence: Qualified Code(s): E10.65 - Type 1 diabetes mellitus with hyperglycemia
[2018-04-05] MEDS ORDERED: ATORVASTATIN 10 MG TAB PO ONE (20:45)
[2018-04-05 21:26] LABS: INR 1.1 (0.9-1.1)
[2018-04-05] MEDS: HEPARIN SOD 5,000 UNIT/0.5 ML VIAL SQ SCH (22:28)
[2018-04-06 06:06] LABS: Hematocrit (blood only) 35.3 % (42-52); Hemoglobin 12.1 g/dL (14.0-18.0); Mean Corpuscular Hgb Conc 34.3 g/dL (32-36); Mean Corpuscular Volume 88.7 fL (80-100); Mean Platelet Volume 9.6 fL (7.4-10.4); Platelet Count 423 K/uL (130-400); RDW Coefficient of Variation 12.9 % (11.5-14.5); RDW Standard Deviation 41.9 fL (36.4-46.3); Red Blood Count 3.98 M/uL (4.7-6.1); White Blood Count 9.86 K/uL (4.8-10.8)
[2018-04-06 06:43] LABS: BUN Creatinine Ratio 14.2 (10-20); Calcium 8.5 mg/dl (8.5-10.1); Creatinine Clr Calc Pharmacy 104.6 ml/min; Est GFR (African American) 128.8; Est GFR (Non-African American) 111.2; Potassium 3.9 mmol/L (3.5-5.1)
[2018-04-06] MEDS: INSULIN ASPART 100 UNITS/ML 3 ML PEN SC SCH ×2 (08:53→12:59)
[2018-04-06] MEDS: HEPARIN SOD 5,000 UNIT/0.5 ML VIAL SQ SCH (08:54)
[2018-04-06] MEDS ORDERED: INSULIN GLARGINE SOLOSTAR 100 UNITS/ML 3 ML PEN SQ SCH (09:00)
[2018-04-06] MEDS ORDERED: ASPIRIN 81 MG ECTAB PO SCH (09:00)
[2018-04-06] MEDS: HYDROCODONE/ACETAMOPHEN 5/325MG TAB PO PRN ×2 (09:05→14:41)
[2018-04-06] MEDS: cefTRIAXone SODIUM 2,000 MG in DEXTROSE 5% 50 ML IV SCH (09:07)
[2018-04-06] MEDS ORDERED: VANCOMYCIN TROUGH ONE (15:30)
--- NOTE | 2018-04-13 12:17 | Discharge Summary ---
Date of Service date of admission - April 02, 2018 date of discharge - April 06, 2018 Admission HPI Per Admitting Provider This is a 42yo male with history of type 1 DM, chronic tobacco use smoking 1 pack/day x 35 years, and diabetic left foot ulcers who presents with left foot infection. Patient notes his foot had been red, warm, and he has been unable to walk very well on it for long distances due to pain. It was more swollen a few days ago but has not completely resolved. The skin on his foot is peeling where it was more swollen. An ulcer started oozing purulent fluid several days ago. He denies any fevers, chills or sweats. Patient was in the ER on 03/31/18 where he was treated with IV Rocephin for a left sided foot ulcer. He was sent home from the ER with prescriptions for Keflex and Bactrim and began taking these. Despite such the left foot has worsened since then. Principal Diagnosis left foot gangrene and osteomyelitis Discharge Exam Constitutional + thin; + not well developed, + not well nourished and no acute distress ENMT external ear and nose normal, oropharynx normal Neck trachea midline, no thyromegaly Respiratory normal respiratory effort, lungs clear to auscultation Cardiovascular RRR, no murmur, no edema Heart Sounds: normal S1 and normal S2 Vessels: posterior tibial pulses present and dorsalis pedis pulses present; no JVD Gastrointestinal (Abdomen) normal bowel sounds, soft, nontender, no hepatosplenomegaly Skin day of discharge - left foot outer dressings removed but inner dressings left intact; the inner dressings are blood-soaked. There is no foul odor. Pulses of left foot are about 1-2+. Cap refill is < 2 seconds left foot. Multiple toes are absent. Psychiatric A+Ox3, euthymic affect Discharge Data Allergies Allergy/AdvReac Type Severity Reaction Status Date / Time No Known Allergies Allergy Mild Verified 04/11/18 00:29 Consultations 1. podiatry - Jenni Cazares DPM 2. vascular surgery 3. infectious disease Procedures Performed 1. Operation Date: 04/04/18 1. Removal of infected bone and soft tissue with amputation of left 1st and 5th metatarsals - Jenni Cazares DPM 2. Incision and drainage left foot - Jenni Cazares DPM 2. RUE PICC line placement Ordered Studies 1. MRI left foot - IMPRESSION: 1. Findings consistent with osteomyelitis of the left fifth metatarsal head likely extending into the distal metatarsal shaft. Two fluid collections adjacent to the fifth metatarsal suggest abscesses, as described above. 2. Findings suggestive of focal osteomyelitis of the dorsal left first metatarsal head with osteitis within the remainder of the left first metatarsal. 3. Status post amputation of the left first and fifth digits at the level the metatarsophalangeal joints. Suspected gas within the adjacent soft tissues. 2. GILBERT left foot - FINDINGS: The right ankle-brachial index was unable to be calculated due to the noncompressible posterior tibial and dorsalis pedis arteries. The digit/ brachial index on the right was 0.6. A left ankle-brachial index was 1.4 and the left digit/brachial index was 0.28. IMPRESSION: Ankle/brachial and digit/brachial indices as described above. 3. Arterial duplex study, left leg - IMPRESSION: 1. No evidence of arterial occlusion. 2. Peripheral arterial calcifications are noted with elevated peak systolic velocities within the popliteal and dorsalis pedis arteries suggesting areas of associated luminal narrowing. 3. Incidental note is made of mild left inguinal adenopathy Hospital Course (1) Gangrene of left foot: s/p amputation of 1st/5th metatarsal heads and debridement by Dr. Cazares , podiatry, for gangrene & osteomyelitis of these 2 areas. Numerous cultures to date with group B strep and MSSA. NO MRSA or gram negative pathogens detected. PICC was obtained, and a 6-week course of once daily IV rocephin 2 grams/day was recommended by Dr. Cazares and Dr. Lizarraga, infectious disease. The patient previously received IV zosyn/vanco prior to the once daily rocephin. Has mild PAD of popliteal and DP arteries of left leg as seen on arterial duplex study. This likely does not need surgical intervention. However, needs to quit smoking. Added asa 81mg daily and lipitor 10mg daily for primary risk factor modification. Needs improved T1DM control at home to optimize his wound healing. The patient was advised to use a post-op surgical shoe AT ALL TIMES WITH AMBULATION at home on the left foot. He will follow-up with Dr. Cazares within 5 days of hospital discharge. Home health has been set up to monitor the left foot wounds. He was counseled to NOT remove the inner dressings as directed by Dr. Cazares. (2) Acute osteomyelitis of left foot: first/5th metatarsals, s/p amputation/debridement by Dr. Cazares. see her op note. IV antibiotics x 6 weeks via PICC line - see above. [place] prior to discharge; no concerns were found. Thus, a small prescription of narcotic pain medication was given at discharge for post-op pain. (3) MSSA (methicillin susceptible Staphylococcus aureus) infection: as seen on cultures (4) Group B streptococcal infection: as seen on cultures (5) Smoking greater than 30 pack years: tobacco cessation desperately needed counseled to quit (6) Uncontrolled type 1 diabetes mellitus: pharmacy managed his T1DM during his stay with excellent control. hopefully patient can replicate this control at home to prevent further complications. (7) PAD (peripheral artery disease): as seen on arterial duplex of left leg. mild popliteal and DP artery disease. doubt needs intervention by vascular surgery. added 81mg aspirin daily. added lipitor 10mg daily. smoking cessation and improved T1DM control desperately needed. Total Time Total Time Spent Total Time Spent (In Minutes): 45 Total Time Includes: Examination of the Patient, Discharge Planning, Medication Reconciliation and Communication With Other Providers Discharge Plan Discharge Items Patient Disposition: Home - Home Health Services Reason For Visit: LEFT FOOT ULCER Discharge Diagnosis: left foot osteomyelitis (bone infection) of 2 separate areas along with gangrene and ulcers Discharge Goals: Diagnostic testing, Improve disease control, Learn about illness and Therapeutic intervention Activity: Resume your previous activity Bathing Comment: no tub baths; ok to shower but keep PICC line & L foot covered/ dry Driving/Machine Use Comment: no driving if using prescription pain medication Weightbearing: Left partial Weightbearing Comment: use post-op shoe provided by Dr. Cazares at all times when walking Non-emergency contact: Primary Care Provider and Surgeon Call non-emergency contact if: you have any medication questions, your symptoms worsen, your pain is not controlled, your pain is worsening, your pain is unusual for you, your pain is concerning for you, your temperature is above 100.5, your wound has increased redness, your wound has increased drainage and your wound pain has increased Follow-up/Referrals: Jose Alberto Lizarraga MD [Physician] - (see Dr. Lizarraga, infectious disease, in 1-2 weeks ) Polina Whitmore MD [Primary Care Provider] - 04/17/18 12:00 pm (Please, follow up with Dr. Whitmore on SundayApril 17 at 12:00 pm. *If you need to change this appointment, call the office at [phone].) Kathryn Flowers MD [Staff Physician] - 08/08/18 8:30 am (Please, follow up at [facility]ology Office with Dr. Kathryn Flowers on August 08 at 8:30 am. You will also see Dr. Flowers on August 15 at 8:30 am for a second appointment *This office is located in [address] of [facility] [employer] [facility] - big building next to this [facility]. If you need to change this appointment, call the office at [phone].) Jenni Cazares DPM [Physician] - (see Dr. Cazares within 5 days; please call her office to schedule follow-up appointment ) Diet: Carb Count or DM1 Addtl Provider Instructions: From Dc Abreu - Hospitalist - 1. Left foot infection/bone infection - * you will need 6 weeks of IV antibiotic therapy for your left foot * this will be given via your PICC line at your home * please also take saccharomyces probiotic once a day to help prevent diarrhea from your IV antibiotics * leave all dressings on the left foot at all times * home health could change the outer dressing of the left foot but ONLY if absolutely necessary (examples: the dressing comes off, the dressing is completely blood-soaked, etc); otherwise Dr. Cazares would prefer that you leave all dressings on as is; of note - the INNER DRESSING that is attached to the skin should be left alone/intact * use your post-op surgical shoe provided by Dr. Cazares any time you bear weight and walk 2. mild peripheral arterial disease - your ultrasound showed mild disease of the blood vessels in the left foot. Diabetes, smoking, high cholesterol, etc all contribute to disease of the arteries. Please do the following - * take aspirin 81mg once daily * take lipitor (atorvastatin) 10mg once daily * stop smoking if at all possible * keep your diabetes controlled as best as possible 3. pain - * hydrocodone-acetaminophen 1 tablet every 4 hours as needed for severe pain * note that the narcotic pain killer has tylenol in it; thus, do NOT take over- the-counter tylenol if you end up taking the narcotic pain killer * do not drive or drink alcohol while taking prescription narcotic pain killers * ok to use usas-qog-esssebl motrin/ibuprofen on an as needed basis in small amounts 4. follow-up - * see Dr. Cazares - windows deployment technician - within 5 days * see your family doctor within 1 week * see Dr. Jose Alberto Lizarraga, infectious disease, in 1-2 weeks 5. Return to [facility] if - * you have fevers over 100.5 degrees * your right arm (where the PICC LINE is) becomes severely swollen, painful, red , etc * your left foot seems to be worsening (pain, redness, swelling, etc) * you have uncontrolled diabetes * you have severe diarrhea * any other concerns Prescriptions: New hydrocodone-acetaminophen [[place]] 5-325 mg Tablet 1 tab PO Q4H PRN (Reason: pain) Qty: 20 RF: 0 aspirin [Ecotrin Low Strength] 81 mg Tablet,Delayed Release (Dr/Ec) 81 mg PO QAM Qty: 90 RF: 3 atorvastatin [Lipitor] 10 mg tablet 10 mg PO DAILY Qty: 30 RF: 2 ceftriaxone 2 gram recon soln 2 gm IV DAILY Qty: 10 RF: 0 Saccharomyces boulardii 250 mg capsule 250 mg PO DAILY Qty: 30 RF: 1 Continue insulin glargine 100 unit/mL solution 20 unit subcut AMPM RF: 0 insulin lispro 100 unit/mL insulin pen subcut ACHS RF: 0 Discontinued cephalexin [Keflex] 500 mg capsule 500 mg PO QID 10 Days Qty: 40 RF: 0 sulfamethoxazole-trimethoprim [Bactrim DS] 800-160 mg tablet 1 tab PO Q12H Qty: 20 RF: 0 Stand-Alone Forms: [facility] Discharge Orders: Discharge Order (Routine); Ordered 04/06/18 Ordered By: Dc Abreu Admission Data Admit Date/Time: 04/02/18 18:23 Attending Provider: Dc Abreu Admit Provider: Pradip Lemus Primary Care Provider: Polina Whitmore Other Providers: Pradip Lemus ; Jenni Cazares ; Jose Alberto Lizarraga ; Santos Wellington Service: Medical Other Interventions: Discharge Summary Assessment (RN) Last Done: 04/06/18 14:25 Pending Studies at Discharge: Yes Studies:: final cultures from recent left foot operation DC Date/Time DO NOT enter until pt leaves facility: 04/06/18 15:00
== END 2018-04-06 15:00 | disposition home health service (06) | DRG 616 ==
LOC: ED 15:39 → SUATTDRO 18:23 → 4E 18:23

== ENCOUNTER 2018-06-04 09:25 | Inpatient (IN) ==
[2018-06-04] MEDS ORDERED: INSULIN ASPART 100 UNITS/ML 3 ML PEN SC SCH ×3 (11:30→21:00)
[2018-06-04] MEDS ORDERED: ONDANSETRON INJ 2 MG/ML 2 ML VIAL IV PRN ×2 (11:40→17:14)
[2018-06-04] MEDS ORDERED: MAGNESIUM HYDROXIDE SUSP 30 ML UDC PO PRN (11:40)
[2018-06-04] MEDS ORDERED: GLUCAGON FOR INJ 1 MG VIAL SQ PRN (11:40)
[2018-06-04] MEDS ORDERED: GLUCOSE 10 TABS/TUBE PO PRN (11:40)
[2018-06-04] MEDS ORDERED: OXYCODONE/ACETAMINOPHEN 5mg/325mg TAB PO PRN (11:40)
[2018-06-04] MEDS ORDERED: GLUCOSE 40% GEL 15 GM TUBE PO PRN (11:40)
[2018-06-04] MEDS ORDERED: DEXTROSE 50% 50 ML SYRINGE IV PRN (11:40)
[2018-06-04] MEDS ORDERED: CARBOHYDRATES FOR HYPOGLYCEMIA PO PRN (11:40)
[2018-06-04] MEDS ORDERED: ACETAMINOPHEN 325 MG TAB PO PRN (11:40)
--- NOTE | 2018-06-04 11:50 | History & Physical Report ---
Date of Service June 04, 2018 Assessment & Plan (1) Gangrene of left foot: Planning for OR today with Dr. Cazares MRI pending Pre-op CBC, PRP, CXR, EKG pending Took AM lantus, but no PO intake today Has aspirin 81mg listed, but states he has not taken for approx 2 weeks, will continue to hold NPO Dapto 400mg IV QD per Dr. Cazares (2) Uncontrolled type 1 diabetes mellitus: Using SSI + lantus 20 units BID Holding lantus give pre-op Had 20 units this AM, monitor (3) DVT prophylaxis: SCDs History of Present Illness Primary Care Provider: Polina Whitmore MD 42 y/o M who was sent here from Dr. Cazares's office for worsening osteomyelitis. Pt has been working with Dr. Cazares for an ongoing L foot infection. He had a surgical procedure to this foot in March and has been on dapto daily since that time. He states there is bone sticking out of the lateral L foot. He was seen in the office today. Dr. Cazares feels it is getting worse and will need further OR intervention. Pt states he has pain to the L lateral foot. He states that there is a new site of infection on the bottom of his foot as well. He does have redness and swelling to the L lateral foot, but no other swelling. He states he feels fine otherwise. Pt denies fever, SOB, chest pain, abd pain, n/v/c/d. He has been able to eat without issue. Allergies Allergy/AdvReac Type Severity Reaction Status Date / Time No Known Allergies Allergy Mild Verified 06/03/18 12:43 Home Medications Home Medications Medication Instructions Recorded Confirmed Type insulin glargine 20 unit SUBCUT AMPM 03/31/18 06/03/18 History insulin lispro 0 units SUBCUT ACHS 03/31/18 06/03/18 History aspirin [Ecotrin Low Strength] 81 mg PO QAM #90 tab 04/06/18 06/03/18 Rx oxycodone-acetaminophen [Percocet] 1 tab PO Q4H PRN 06/03/18 06/03/18 History Past Med/Surg History Medical History C. difficile diarrhea Sepsis (Acute) Leukocytosis (Acute) Anemia (Acute) PAD (peripheral artery disease) Gangrene of left foot (Acute) Uncontrolled type 1 diabetes mellitus MSSA (methicillin susceptible Staphylococcus aureus) infection Group B streptococcal infection Cellulitis (Acute) Smoking greater than 30 pack years DM type 1 (diabetes mellitus, type 1) H/o DKA with hospitalization since age 14 Diabetes Cellulitis (Acute) Diabetic foot ulcer (Acute 02/15/13) Diabetic ulcer of left foot (Inactive) Surgical History S/P foot surgery, left I&D S/P knee surgery Family History Other No significant family history Social History marital status: Current Living Situation: Significant Other current occupational status: employed Feels Safe at Home: Yes Smoking Status: Former smoker Smoking End Date: 2 months ago Second Hand Exposure: No Hx Alcohol Use: Yes Alcohol type: beer Alcohol Intake Frequency: holidays/ special occasions only Hx Substance Use: No Beliefs That Will Affect Care: None Preferred Language: Khmer Review of Systems Pertinent positives and negatives reviewed in HPI--all others negative Physical Exam 2 Vital Signs (Past 24 Hours): Last Vital Signs Temp 36.8 C 06/04/18 11:10 Pulse 85 06/04/18 11:10 Resp 18 06/04/18 11:10 BP 129/84 06/04/18 11:10 Pulse Ox 96 06/04/18 11:10 Physical Exam: Exam as done by Candi Campbell DO: Constitutional: WD/WN, vitals as above Eyes: normal visual lake by confrontation and + anicteric sclerae Neck: normal visual inspection and trachea midline Respiratory: normal respiratory effort, lungs clear to auscultation Cardiovascular: Rate/Rhythm: regular rate and regular rhythm Gastrointestinal (Abdomen): Inspection/Auscultation: abdomen not distended Percussion/Palpation: abdomen soft; abdomen nontender Musculoskeletal: Head/Neck/Chest: normocephalic and head atraumatic Neg for peripheral LE edema, + pedal pulses Skin: no rashes, warm and dry (around area of bandaging, bandages are dry) Neurologic: awake; not confused Speech / Cognition: normal speech Psychiatric: A+Ox3, euthymic affect Lymphatic: Exam as done by Candi Campbell, DO Code Status & VTE Plan Code Status Full code VTE Prophylaxis Plan VTE Prophylaxis will be ordered: Yes _ (1) Uncontrolled type 1 diabetes mellitus Glycemic state: with hyperglycemia Coma presence: Qualified Code(s): E10.65 - Type 1 diabetes mellitus with hyperglycemia
[2018-06-04] MEDS ORDERED: MoRPHine SULFATE 4 MG/ML 1 ML CARP\\VIAL IV PRN (11:51)
[2018-06-04] MEDS ORDERED: PATIENT'S HEIGHT AND/OR WEIGHT NEEDED SCH (12:15)
[2018-06-04] MEDS ORDERED: DAPTOmycin 375 MG in SYRINGE 0 ML IV SCH (13:00)
--- NOTE | 2018-06-04 13:05 | XRay Report ---
SINGLE VIEW CHEST CLINICAL HISTORY: Preoperative examination. FINDINGS: An AP, portable, upright chest radiograph is compared to study dated 04/10/2018. A left-elkin ed PICC line is new from previous. The tip projects over the SVC. The cardiomediastinal silhouette is unremarkable. The lungs and pleural spaces are clear. No pneumothorax is seen. The bony thorax is gr ossly intact. IMPRESSION: No active disease in the chest. Electronically signed by: Manolo Conn M.D. 06/04/2018 1:04 PM
[2018-06-04] MEDS ORDERED: Nursing to Pharmacy Communication ONE ×2 (13:52→20:29)
--- NOTE | 2018-06-04 14:10 | Magnetic Resonance Report ---
MR foot LT w/o con HISTORY: 42 years-old Male r/o osteomyelitis chronic swelling of the left foot with clinical concer n for possible osteomyelitis COMPARISON: MRI left foot 04/03/2018, fluoroscopic images of the left foot 04/04/2018 TECHNIQUE: Multiplanar multisequence MRI of the left forefoot was obtained without the use of IV cont rast. FINDINGS: Extensive postsurgical changes of the foot with multifocal micrometallic artifact. Prior amputation o f the fifth digit at the level of the proximal metaphyseal fifth metatarsal. Prior indication of the first digit at the level of the distal diaphyseal first metatarsal. There is dorsal dislocation noted about the second and third metatarsal-phalangeal joints. The fourth metatarsophalangeal joint appear s to be in satisfactory positioning. Mild multifocal degenerative changes about the midfoot and foref oot. There is moderate bone marrow edema about the distal aspect of the first metatarsal with decreased T1 marrow edema and cortical indistinctness, image 12 series 8. Moderate to extensive bone marrow edema involving the remnant of the proximal fifth metatarsal with mildly decreased T1 marrow signal on westley ge 19 series 4. There is mild indistinctness about the volar cortex. Subacute appearing transverse fr acture about the proximal metaphyseal fourth metatarsal with corticated margins and mild to moderate adjacent bone marrow edema, image 13 series 9. Mild to moderate nonspecific bone marrow edema involve s the proximal aspect of the second metatarsal with additional mild to moderate nonspecific scattered bone marrow edema noted throughout the cuboid, metatarsals and phalanges. Moderate soft tissue swelling about the first metatarsal stump and lateral midfoot and forefoot. No d rainable fluid collection. Possible deep tissue air within the lateral soft tissues. Moderate atrophy about the physical musculature of the foot. Mild subcutaneous edema noted most pronounced dorsally. IMPRESSION: 1. Extensive postoperative changes of the forefoot as above. 2. Findings are suspicious for acute osteomyelitis involving the distal aspect of the first metatarsa l. 3. Moderate bone marrow edema about the remnant of the proximal fifth metatarsal with mild volar jayjay ical indistinctness suspicious for additional site of acute osteomyelitis. 4. Healing subacute appearing nondisplaced fracture about the proximal metaphyseal fourth metatarsal. 5. Additional findings as above. The above report was generated using voice recognition software. It may contain grammatical, syntax o r spelling errors. Electronically signed by: Ronald Latif M.D. 06/04/2018 2:09 PM
--- NOTE | 2018-06-04 16:11 | History and Physical Report ---
DATE OF ADMISSION: 06/04/2018 HISTORY OF PRESENT ILLNESS: A 42-year-old male seen in my office this morning. The patient has had a longstanding history of infections involving the left foot that started in 2006. Dr. Pandya resected part of the left first and the left fifth toes. During the second week of March, the patient was seen in ER, was given Rocephin for 1 dose and then discharged on Keflex and Bactrim. He was back the third week in March and readmitted to the hospital. At this time, he was started on vancomycin and Zosyn. During this admission, he underwent amputation involving more proximal to the first and fifth rays of the left foot. During that admission, the patient was not amenable to any surgery due to change of function. I convinced the patient to undergo an I and D with amputation with removal of the infected bone. At the time of this procedure, the MRI showed questionable involvement involving the entire fifth metatarsal; however, the ulceration was just distally and intraoperatively did not seem to involve the base of the metatarsal as well. Given the patient's reluctance to do any surgery, the base of the fifth metatarsal was preserved to preserve function of the peroneus brevis tendon; however, despite this effort, continued involvement most likely remained to the fifth metatarsal base. Since the time of the surgery on 04/04/2018, the patient had consistent pain, swelling and redness over the fifth metatarsal base that has resolved over the left first metatarsal. He has been receiving daptomycin 400 mg once a day since the last discharge and is tolerating this through a PICC line. The patient's PICC line was changed yesterday due to complication. Due to continued pain, redness and swelling, I have recommended readmission for resection of the fifth metatarsal base with transfer of the peroneus brevis tendon. The patient is amenable to this [facility] PAST SURGICAL HISTORY: Eye surgery, foot surgery, knee surgery. PAST MEDICAL HISTORY: Insulin-dependent poorly controlled with peripheral vascular disease and peripheral neuropathy, renal insufficiency secondary to the diabetes and diabetic retinopathy. MEDICATIONS: Lantus, Humalog, Percocet and daptomycin 400 mg every day. ALLERGIES: No known drug allergies. FAMILY HISTORY: Unremarkable. SOCIAL HISTORY: The patient admits to tobacco use, 30-pack year history. He quit during his last admission. Currently engaged to be . REVIEW OF SYSTEMS: Unremarkable except chief complaint. PHYSICAL EXAMINATION: CONSTITUTIONAL: The patient appears well developed. PICC line is intact. HEAD AND FACE: Head is normocephalic and atraumatic. EARS, EYES, NOSE AND THROAT: Unremarkable. CARDIOVASCULAR: Normal S1, S2 without murmur, gallops or rubs noted. RESPIRATORY: Lungs are clear to auscultation bilaterally. ABDOMEN: Nondistended, nontender. LOWER EXTREMITY EXAM: Pulses in lower extremity, left dorsalis pedis and posterior tibial pulse are 1/4. Digital hair is present and there is swelling over the lateral aspect of the left foot, evidence of edema +3. DERMATOLOGICAL: Lower extremity exam, erythema involving the dorsal lateral aspect to the left mid foot. There are open eschars over the left forefoot measuring 2.4 x 1.8 and over the left fifth metatarsal amputation site measuring 1.3 x 1.0. There is also a pressure necrosis with area of maceration on the plantar left forefoot. NEUROLOGICAL: Epicritic sensation per [place] monofilament 5.07 is absent to the distal extremities. MUSCULOSKELETAL: Amputation to left first and fifth metatarsal. LABORATORY DATA: Path report on 04/04/2018 has mislabeled the first and the fifth metatarsals. There was questionable involvement to the resected margin of the removal of the fifth metatarsal noted as the first on the report. MRI on 04/03/2018 shows marrow edema in the fifth metatarsal suggesting a distal osteomyelitis consistent with distal osteomyelitis of the left fifth metatarsal head extending through the metatarsal shaft. There was fluid collection adjacent to the fifth metatarsal suggesting an abscess and gas within the subcutaneous soft tissue. MRI ordered for today is pending. Culture reports to the left foot from the OR following irrigation showed Staph aureus on 04/04/2018. Prior to the OR, wound cultures in the left foot were growing out beta group B strep and staph aureus. CPK has been within normal limits since discharge. IMPRESSION: 1. Cellulitis, left foot. 2. Osteomyelitis involving the left fifth metatarsal remaining portion. 3. 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 4. Foot ulcerations left hallux amputation site and left fifth metatarsal mid foot area. PLAN: Admission to the hospital. Continue IV antibiotics continuous improvement black belt to the OR for resection of the fifth metatarsal base with rerouting and transfer of the peroneus brevis tendon. Recommended MRI to rule out any further contiguous spread of the osteomyelitis throughout the cuboid and mid foot bones as well as examination of the fourth metatarsal base. The patient is continuous improvement black belt to the OR. Would recommend continued follow up with Dr. Lizarraga. We will continue daptomycin through PICC line following discharge. We will also obtain additional deep cultures in the OR today.
[2018-06-04] MEDS ORDERED: LIDOCAINE HCL 2% 2 ML VIAL/AMP(20MG/ML) INFIL ONE (17:04)
[2018-06-04] MEDS ORDERED: ONDANSETRON INJ 2 MG/ML 2 ML VIAL ONE (17:04)
[2018-06-04] MEDS ORDERED: fentaNYL citrate 100 MCG/2 ML VIAL ONE (17:04)
[2018-06-04] MEDS ORDERED: DEXAMETHASONE SOD INJ 4 MG/ML VIAL ONE (17:04)
[2018-06-04] MEDS ORDERED: MIDAZOLAM HCL 1 MG/ML 2ML VIAL ONE (17:04)
[2018-06-04] MEDS ORDERED: PROPOFOL IV EMULSION 10 MG/ML 20 ML VIAL IV ONE (17:04)
[2018-06-04] MEDS ORDERED: BUPIVACAINE 0.5 % 5 MG/1 ML MPF 30ML VIAL ONE (17:07)
[2018-06-04] MEDS ORDERED: BACITRACIN INJ 50,000 UNIT VIAL ONE (17:07)
--- NOTE | 2018-06-04 17:12 | Anesthesiology Consultation ---
Date of Service June 04, 2018 Chronic Anemia Poorly Controlled DM Type I Recent Heavy Smoker Assessment & Plan Chart Review Chart Review: Acceptable Risk for Surgery and Patient NOT seen in Pre Admission Testing Consults Requested none ASA ASA3 Proposed Anesthesia Anesthesia Type: General Regional Laterality: Left Site: Ankle Risk / Benefits Reviewed With: PT / POA / Parent / Guardian, Accepts Plan and Informed Consent Obtained NPO Date Last Intake of Fluids: 06/04/18 Time Last Intake of Fluids: 00:30 Date Last Intake of Solids: 06/04/18 Time Last Intake of Solids: 00:30 History Surgery Operation Date: 06/04/18 12:55 Proposed Procedures p Left Foot 5th Metatarsal Removal, Rerouting Tendon - Jenni Cazares DPM Height/Weight Height: 5 ft 7 in Weight: 61.1 kg Allergies Allergy/AdvReac Type Severity Reaction Status Date / Time No Known Allergies Allergy Mild Verified 06/03/18 12:43 Medications Home Medications Medication Instructions Recorded Confirmed Last Taken insulin glargine 20 unit SUBCUT AMPM 03/31/18 06/03/18 06/03/18 08:00 insulin lispro 0 units SUBCUT ACHS 03/31/18 06/03/18 03/31/18 aspirin [Ecotrin Low Strength] 81 mg PO QAM #90 tab 04/06/18 06/03/18 Unknown oxycodone-acetaminophen [Percocet] 1 tab PO Q4H PRN 06/03/18 06/03/18 06/03/18 08:00 Active Medications Generic Name Dose Route Start Last Admin Trade Name Freq PRN Reason Stop Dose Admin Daptomycin 375 mg/ Syringe 7.5 mls @ 3.75 mls/min 06/04/18 13:00 06/04/18 14: 10 IV 06/14/18 12:59 3.75 mls/min Q24H CARLOS Administration Protocol Past Medical History Medical History C. difficile diarrhea Sepsis (Acute) Leukocytosis (Acute) Anemia (Acute) PAD (peripheral artery disease) Gangrene of left foot (Acute) Uncontrolled type 1 diabetes mellitus MSSA (methicillin susceptible Staphylococcus aureus) infection Group B streptococcal infection Cellulitis (Acute) Smoking greater than 30 pack years DM type 1 (diabetes mellitus, type 1) H/o DKA with hospitalization since age 14 Diabetes Cellulitis (Acute) Diabetic foot ulcer (Acute 02/15/13) Diabetic ulcer of left foot (Inactive) Past Family History Family History Other No significant family history Past Surgical History Surgical History S/P knee surgery S/P foot surgery, left I&D Social History Smoking Status: Former smoker tobacco type: smokeless tobacco Smoking cigarettes per day: 20 Do You Dip or Chew Tobacco: Yes Smoking End Date: 2 months ago Hx Alcohol Use: Yes Alcohol type: beer alcohol intake frequency: holidays/special occasions only Hx Substance Use: No substance use type: does not use Physical Exam Vital Signs Last Vital Signs Temp 36.4 C L 06/04/18 16:54 Pulse 84 06/04/18 16:54 Resp 20 06/04/18 16:54 BP 126/83 06/04/18 16:54 Pulse Ox 97 06/04/18 16:54 ENMT Mouth: + poor dentition; no TMJ abnormality Thyromental Distance: > or= 3.5 Finger Breadths Mallampati Class: II Neck normal visual inspection Respiratory normal respiratory effort Cardiovascular Rate/Rhythm: regular rate and regular rhythm Neurologic moves all extremities Psychiatric Orientation: alert Testing Laboratory Results 06/04/18 06/04/18 16:50 12:47 POC Glucose 118 H 278 H
[2018-06-04] MEDS ORDERED: fentaNYL citrate 100 MCG/2 ML VIAL IV PRN (17:14)
[2018-06-04] MEDS ORDERED: ATROPINE SULFATE 0.1 MG/ML 10ML SYR IV PRN (17:14)
[2018-06-04] MEDS ORDERED: ePHEDrine sulfate 50 MG/ML AMP IV PRN (17:14)
[2018-06-04] MEDS ORDERED: LACTATED RINGER'S 1,000 ML IV SCH (17:15)
[2018-06-04] MEDS ORDERED: BUPIVACAINE 0.5 % 5 MG/1 ML PF 10ML VIAL ONE (17:15)
[2018-06-04] MEDS ORDERED: ePHEDrine sulfate 50 MG/ML SYR ONE (18:02)
--- NOTE | 2018-06-04 18:41 | Operative Report ---
Post Operative Report Pre & Post Diagnosis Operation Date: 06/04/18 12:55 Pre-Op Diagnosis: OSTEOMYELITIS Post-Op Diagnosis: OSTEOMYELITIS Procedure Operation Date: 06/04/18 12:55 Actual Procedures p Left Foot 5th Metatarsal Removal, Rerouting Tendon(Left) - Jenni Cazares DPM Surgeon Jenni Cazares DPM Assistent Dr. Madelaine Curtis DPM Aircraft Cleaner Dr. Amezcua Estimated Blood Loss 5 Findings Consistent with Post-Op Diagnosis Specimens bone Description of Procedure Left 5th metatarsal removal & transfer with rerouting Peroneus Brevis tendon left foot I attest to the content of the Intraoperative Record and any orders documented therein. Any exceptions are noted below.
--- NOTE | 2018-06-04 19:47 | XRay Report ---
XR foot LT min 3V routine CLINICAL HISTORY: postop. Amputation. COMPARISON STUDY: Left foot 04/01/2018. FINDINGS: Interval amputation of the head of the first metatarsal and fifth metatarsal. Overlying ban dages obscured fine bony detail. Small metallic screw at the cuboid bone is noted. Mild vascular calc ifications. IMPRESSION: Postoperative changes within the left foot as described above. Electronically signed by: Rolly Olson M.D. 06/04/2018 7:46 PM
--- NOTE | 2018-06-04 19:49 | Fluoroscopy Report ---
INTRAOPERATIVE RADIOGRAPH CLINICAL HISTORY: Foot surgery. Fluoroscopy time: 4 seconds. FINDINGS: A single spot fluoroscopic view of the left foot is obtained. Correlated with radiographs d ated 04/01/2018. There has been amputation of the first toe through the distal shaft of the first met atarsal. There has been amputation of the fifth metatarsal. A surgical anchor is present within a lat eral tarsal bone. Soft tissue edema is noted throughout the foot. IMPRESSION: Post amputation change is noted in the foot. See operative report for detailed findings. Electronically signed by: Manolo Conn M.D. 06/04/2018 7:47 PM
--- NOTE | 2018-06-04 20:48 | Operative Report ---
DATE OF OPERATION: 06/04/2018 SURGEON: Jenni Cazares DPM CHRISTMAS TREE GRADER: Abdiel Amezcua DPM PREOPERATIVE DIAGNOSES: 1. Cellulitis of the left foot. 2. Osteomyelitis of the base of the left fifth metatarsal. 3. Fracture of the base of the fourth metatarsal. 4. Status post amputation of left fourth and fifth rays with osteitis of the left first metatarsal secondary to the bone resection and left fifth metatarsal osteomyelitis and post-residual osteomyelitis. POSTOPERATIVE DIAGNOSES: 1. Cellulitis of the left foot. 2. Osteomyelitis of the base of the left fifth metatarsal. 3. Fracture of the base of the fourth metatarsal. 4. Status post amputation of left fourth and fifth rays with osteitis of the left first metatarsal secondary to the bone resection and left fifth metatarsal osteomyelitis and post-residual osteomyelitis. PROCEDURES: 1. I and D of the left foot. 2. Excision of fifth metatarsal. 3. Transfer with transition peroneus brevis tendon of the left foot. ANESTHESIA: I.V. with local sedation with ankle block performed by anesthesia with 20 mL 0.5% Marcaine plain. HEMOSTASIS: Pneumatic thigh tourniquet inflated to a level of 300 mmHg. ESTIMATED BLOOD LOSS: 5 mL. IRRIGATION: 3000 mL of normal saline with bacitracin 50,000 units. MATERIALS: A 2-0, 3-0 Vicryl, 4-0 nylon, 2.7 mini corkscrew, 2.4, 6.5 mini Arthrex Composite screw was used and that was removed. HISTOPATHOLOGY: Bone sent for aerobic and anaerobic culture and Gram stain. COMPLICATIONS: None. The patient tolerated the procedure and anesthesia well without complications. DESCRIPTION OF PROCEDURE: The patient was brought to the Operating Room and placed on the Operating Room table in supine position. Upon completion of I.V. with local sedation with local field block performed to the left lower extremity. The extremity was scrubbed, prepped and draped in the usual aseptic fashion. Attention was directed to the base of left fifth metatarsal where the previous incision was made and extended along the peroneus brevis tendon. Peroneus brevis was freed most distal attachment to the fifth metatarsal. The remaining bone on the fifth metatarsal was disarticulated. At this time, under fluoroscopy, a composite Arthrex screw was placed 2.4; however, this pulled through the soft bone secondary to peripheral neuropathy. The bone was examined and found to have cortices intact with no grayish discoloration, appeared to be healthy bone although was more soft than expected for 42 years old. At this time, a 2.7 mini corkscrew was placed along the anterior leading edge of the cortices of the cuboid versus from the lateral with the tendon repaired in a [place] fashion and reattached to the cuboid. Upon range of motion exercises, there was good bone purchase of the screw with adequate length noted of the peroneus brevis tendon. The wound was copiously lavaged with 3000 units. The bone was sent for aerobic culture and Gram stain of the fifth metatarsal. Closure began of the deep structures using 2-0 Vicryl. Superficial deep structures were closed using 3-0 Vicryl. Skin margins were closed using nylon in the skin simple interrupted sutures. The pneumatic ankle tourniquet was released with normal 1 through 5. A well-padded BK splint was applied to the left lower extremity. The patient will be readmitted to the floor for continued I.V. antibiotics. The patient will continue I.V. antibiotics. We will continue with follow up with Dr. Lizarraga and we will continue to follow the patient closely for anticipated stop date on the antibiotics. The bone was sent for culture. We will continue to monitor this over the next few days and we will continue daptomycin 400 mg p.o. daily as an outpatient. I attest to the content of the Intraoperative Record and any orders documented therein. Any exceptions are noted below. MTDD
--- NOTE | 2018-06-04 21:00 | Anesthesiology Progress Note ---
Date of Service June 04, 2018 Anesthesia Post Procedure Vital Signs Vital Signs: Temp Pulse Pulse Pulse Resp BP BP 06/04/18 20:40 36.7 C 79 16 113/68 06/04/18 20:10 36.8 C 79 14 111/68 06/04/18 20:00 36.3 C L 80 19 99/62 L 06/04/18 19:45 79 17 103/60 06/04/18 19:35 79 17 114/63 06/04/18 19:25 79 21 117/67 06/04/18 19:17 36.3 C L 82 14 134/78 06/04/18 16:54 36.4 C L 84 20 126/83 06/04/18 15:25 36.8 C 85 16 114/72 06/04/18 11:44 36.8 C 85 14 129/84 06/04/18 11:10 36.8 C 85 18 129/84 Pulse Ox 06/04/18 20:40 99 06/04/18 20:10 99 06/04/18 20:00 99 06/04/18 19:45 99 06/04/18 19:35 99 06/04/18 19:25 98 06/04/18 19:17 98 06/04/18 16:54 97 06/04/18 15:25 98 06/04/18 11:44 96 06/04/18 11:10 96 Pain Intensity Left Foot: Pain Intensity: 0 Notes Mental Status: alert / awake / arousable Patient Amnestic to Procedure: Yes Nausea / Vomiting: adequately controlled Pain: adequately controlled Airway Patency, RR, SpO2: stable & adequate BP & HR: stable & adequate Hydration State: stable & adequate Anesthetic Complications: no major complications apparent
[2018-06-05 05:55] LABS: Basophils # (auto) 0.01 K/uL (0-0.2); Basophils % (auto) 0.1 %; Hematocrit (blood only) 40.4 % (42-52); Immature Granulocytes # (auto) 0.04 K/uL (0.00-0.02); Immature Granulocytes % (auto) 0.3 %; Lymphocytes # (auto) 0.95 K/uL (1.2-3.4); Lymphocytes % (auto) 6.9 %; Mean Corpuscular Hgb Conc 34.7 g/dL (32-36); Mean Platelet Volume 10.7 fL (7.4-10.4); Monocytes # (auto) 0.45 K/uL (0.11-0.59); Monocytes % (auto) 3.3 %; Neutrophils # (auto) 12.24 K/uL (1.4-6.5); Neutrophils % (auto) 89.4 %; Platelet Count 234 K/uL (130-400); RDW Coefficient of Variation 12.9 % (11.5-14.5); RDW Standard Deviation 42.5 fL (36.4-46.3); Red Blood Count 4.49 M/uL (4.7-6.1); White Blood Count 13.69 K/uL (4.8-10.8)
[2018-06-05 06:30] LABS: BUN Creatinine Ratio 23.7 (10-20); Calcium 8.3 mg/dl (8.5-10.1); Creatinine Clr Calc Pharmacy 91.2 ml/min; Est GFR (African American) 118.6; Est GFR (Non-African American) 102.3; Magnesium 1.8 mg/dl (1.8-2.4); Phosphorus 4.3 mg/dl (2.5-4.9); Potassium 4.5 mmol/L (3.5-5.1)
[2018-06-05 06:41] LABS: Estimated Average Glucose 226 mg/dl
[2018-06-05] MEDS ORDERED: INSULIN ASPART 100 UNITS/ML 3 ML PEN SC SCH (07:30)
--- NOTE | 2018-06-05 08:21 | Progress Note ---
DATE: 06/05/2018 HISTORY OF PRESENT ILLNESS: The patient seen at bedside, ambulating, nonweightbearing, left lower extremity. Eating and voiding well without complications. Denies fever, chills, and night sweats. PHYSICAL EXAMINATION: VITAL SIGNS: Afebrile at 36.9, pulse high at 91, BP 117/65. VASCULAR: Lower extremity physical exam, copious amounts of swelling noted to the dorsolateral aspect of left foot. DERMATOLOGIC: Sutures intact. Serosanguineous drainage, copious throughout the dressings into the splint. NEUROLOGIC: Grossly absent. MUSCULOSKELETAL: Pain over the dorsolateral aspect of the left foot. LABORATORY DATA: Bone culture from the OR pending. WBC 13.69 with shift left of neutrophils 12.24. Blood work, BUN is 22, high; glucose 359. IMPRESSION AND PLAN: 1. Status post fifth metatarsal amputation with tendon transfer secondary to osteo, postoperative day 1. 2. Insulin dependent diabetes mellitus with peripheral neuropathy. 3. Cellulitis, left foot, with history of osteomyelitis. Splint changed with dressing at bedside. Will continue to keep the dressing clean, dry, and intact and ambulate nonweightbearing in Cam boot. To continue daptomycin 400 mg daily through PICC line. This has already been arranged at home. 4. Continue to follow up with Dr. Lizarraga. 5. The patient will be seen in my office in 1 week for followup. May be discharged from a podiatric standpoint.
[2018-06-05] MEDS ORDERED: ASPIRIN 81 MG ECTAB PO SCH (09:00)
[2018-06-05] MEDS ORDERED: INSULIN GLARGINE SOLOSTAR 100 UNITS/ML 3 ML PEN SC ONE (10:00)
--- NOTE | 2018-06-05 10:22 | Anesthesiology Progress Note ---
Date of Service June 05, 2018 Anesthesia Post Procedure Vital Signs Vital Signs: Temp Pulse Pulse Pulse Resp BP BP 06/05/18 07:40 37.0 C 86 18 101/59 L 06/05/18 04:10 36.9 C 91 H 16 117/65 06/04/18 23:15 36.7 C 87 16 117/65 06/04/18 22:10 36.6 C 81 16 129/67 06/04/18 21:10 36.8 C 82 16 129/67 06/04/18 20:40 36.7 C 79 16 113/68 06/04/18 20:10 36.8 C 79 14 111/68 06/04/18 20:00 36.3 C L 80 19 99/62 L 06/04/18 19:45 79 17 103/60 06/04/18 19:35 79 17 114/63 06/04/18 19:25 79 21 117/67 06/04/18 19:17 36.3 C L 82 14 134/78 06/04/18 16:54 36.4 C L 84 20 126/83 06/04/18 15:25 36.8 C 85 16 114/72 06/04/18 11:44 36.8 C 85 14 129/84 06/04/18 11:10 36.8 C 85 18 129/84 Pulse Ox 06/05/18 07:40 96 06/05/18 04:10 96 06/04/18 23:15 95 06/04/18 22:10 98 06/04/18 21:10 98 06/04/18 20:40 99 06/04/18 20:10 99 06/04/18 20:00 99 06/04/18 19:45 99 06/04/18 19:35 99 06/04/18 19:25 98 06/04/18 19:17 98 06/04/18 16:54 97 06/04/18 15:25 98 06/04/18 11:44 96 06/04/18 11:10 96 Pain Intensity Left Foot: Pain Intensity: 0 Notes Mental Status: alert / awake / arousable Patient Amnestic to Procedure: Yes Nausea / Vomiting: adequately controlled Pain: adequately controlled Airway Patency, RR, SpO2: stable & adequate BP & HR: stable & adequate Hydration State: stable & adequate Anesthetic Complications: no major complications apparent and Pt Satisfied with anesthetic care
--- NOTE | 2018-06-05 20:06 | Discharge Summary ---
Date of Service June 05, 2018 Admission HPI Per Admitting Provider 42 y/o M who was sent here from Dr. Cazares's office for worsening osteomyelitis. Pt has been working with Dr. Cazares for an ongoing L foot infection. He had a surgical procedure to this foot in March and has been on dapto daily since that time. He states there is bone sticking out of the lateral L foot. He was seen in the office today. Dr. Cazares feels it is getting worse and will need further OR intervention. Pt states he has pain to the L lateral foot. He states that there is a new site of infection on the bottom of his foot as well. He does have redness and swelling to the L lateral foot, but no other swelling. He states he feels fine otherwise. Pt denies fever, SOB, chest pain, abd pain, n/v/c/d. He has been able to eat without issue. Principal Diagnosis Osteomyelitis and S/P 5th Metatarsal Amputation Discharge Exam Constitutional WD/WN, vitals as above Eyes + anicteric sclerae ENMT Ears: no hearing impairment Neck trachea midline Respiratory normal respiratory effort, lungs clear to auscultation Cardiovascular RRR, no murmur, no edema Gastrointestinal (Abdomen) Inspection/Auscultation: normal bowel sounds Percussion/Palpation: abdomen soft; abdomen nontender Musculoskeletal Head/Neck/Chest: normocephalic, head atraumatic and neck supple Extremities: + foot abnormality (Boot and wrap in place c/d/i - did not remove) Left Skin no rashes, warm and dry Neurologic moves all extremities Psychiatric A+Ox3, euthymic affect Discharge Data Allergies Allergy/AdvReac Type Severity Reaction Status Date / Time No Known Allergies Allergy Mild Verified 06/03/18 12:43 Procedures Performed Operation Date: 06/04/18 12:55 Actual Procedures p Left Foot 5th Metatarsal Removal, Rerouting peroneous Tendon(Left) - Jenni Cazares DPM Ordered Studies MR foot LT w/o con FINDINGS: Extensive postsurgical changes of the foot with multifocal micrometallic artifact. Prior amputation of the fifth digit at the level of the proximal metaphyseal fifth metatarsal. Prior indication of the first digit at the level of the distal diaphyseal first metatarsal. There is dorsal dislocation noted about the second and third metatarsal-phalangeal joints. The fourth metatarsophalangeal joint appears to be in satisfactory positioning. Mild multifocal degenerative changes about the midfoot and forefoot. There is moderate bone marrow edema about the distal aspect of the first metatarsal with decreased T1 marrow edema and cortical indistinctness, image 12 series 8. Moderate to extensive bone marrow edema involving the remnant of the proximal fifth metatarsal with mildly decreased T1 marrow signal on image 19 series 4. There is mild indistinctness about the volar cortex. Subacute appearing transverse fracture about the proximal metaphyseal fourth metatarsal with corticated margins and mild to moderate adjacent bone marrow edema, image 13 series 9. Mild to moderate nonspecific bone marrow edema involves the proximal aspect of the second metatarsal with additional mild to moderate nonspecific scattered bone marrow edema noted throughout the cuboid, metatarsals and phalanges. Moderate soft tissue swelling about the first metatarsal stump and lateral midfoot and forefoot. No drainable fluid collection. Possible deep tissue air within the lateral soft tissues. Moderate atrophy about the physical musculature of the foot. Mild subcutaneous edema noted most pronounced dorsally. IMPRESSION: 1. Extensive postoperative changes of the forefoot as above. 2. Findings are suspicious for acute osteomyelitis involving the distal aspect of the first metatarsal. 3. Moderate bone marrow edema about the remnant of the proximal fifth metatarsal with mild volar cortical indistinctness suspicious for additional site of acute osteomyelitis. 4. Healing subacute appearing nondisplaced fracture about the proximal metaphyseal fourth metatarsal. 5. Additional findings as above. Hospital Course (1) Gangrene of left foot: - S/P 5th Metatarsal Removal/Rerouting Tendon - Currently on Daptomycin 400 mg IV daily and follows with infectious disease - continue antibiotics as previously prescribed; PICC line in place - Podiatry recommended to not place complete weight and crutches provided/gait training performed (2) Uncontrolled type 1 diabetes mellitus: - A1c is 9.5 and did discuss with patient and so did tobacco prevention health educator - He is planning on seeing an assistant professor of economics in July - Recommended that he could increase his dosings of his insulin and monitor to get better control Total Time Total Time Spent Total Time Spent (In Minutes): Greater than 30 minutes Discharge Plan Discharge Items Patient Disposition: Home - Self-Care Reason For Visit: OSTEOMYELITIS Discharge Diagnosis: Osteomyelitis with 5th Toe removal Discharge Goals: Decrease discomfort, Learn about illness and Prevent disease Activity: Resume your previous activity Weightbearing: Left non-weightbearing Non-emergency contact: Primary Care Provider Call non-emergency contact if: you have any medication questions, your symptoms worsen and you have a fever Follow-up/Referrals: Polina Whitmore MD [Primary Care Provider] - Diet: Carb Count or DM1 Addtl Provider Instructions: Foot Infection/Toe Removal with Tendon Rerouting: - Plan is to continue your prescribed antibiotics and continue to follow with Dr. Lizarraga and Dr. Cazares for ongoing management - Can continue your Percocet as previously prescribed - Your foot doctor does not want you to place weight on this and you will be given crutches. - Please follow-up with your foot doctor on Sunday as arranged Diabetes: - Continue your insulin regimen as previously prescribed. - Your A1c is 9.5 and we would like to see this closer to 6.5 to help prevent complications with wound healing, prevent heart disease, prevent stroke, etc. - Please keep the appointment with the contracting support specialist to help get better control on the sugars Prescriptions: New daptomycin 350 mg recon soln 400 mg IV DAILY Qty: 1 RF: 0 Continue oxycodone-acetaminophen [Percocet] 5-325 mg Tablet 1 tab PO Q4H PRN (Reason: Pain) RF: 0 insulin glargine 100 unit/mL solution 20 unit subcut AMPM RF: 0 insulin lispro 100 unit/mL insulin pen subcut ACHS RF: 0 aspirin [Ecotrin Low Strength] 81 mg Tablet,Delayed Release (Dr/Ec) 81 mg PO QAM Qty: 90 RF: 3 Stand-Alone Forms: [facility] Discharge Orders: Discharge Order (Routine); Ordered 06/05/18 Ordered By: Guillermina Washburn Admission Data Admit Date/Time: 06/04/18 11:16 Attending Provider: Candi Campbell Admit Provider: Lionel Doherty Primary Care Provider: Polina Whitmore Service: Surgical Services Other Interventions: Discharge Summary Assessment (RN) Last Done: 06/05/18 11:04 Pending Studies at Discharge: No DC Date/Time DO NOT enter until pt leaves facility: 06/05/18 11:13
== END 2018-06-05 11:13 | disposition home or self-care (01) | DRG 629 ==
LOC: 3N 11:16
DX: E10.621 Type 1 diabetes mellitus with foot ulcer; I96 Gangrene, not elsewhere classified; Z87.891 Personal history of nicotine dependence; E10.65 Type 1 diabetes mellitus with hyperglycemia; L03.116 Cellulitis of left lower limb; M86.9 Osteomyelitis, unspecified; E10.52 Type 1 diabetes mellitus with diabetic peripheral angiopathy with gangrene; M84.675A Pathological fracture in other disease, left foot, initial encounter for fracture; Z79.4 Long term (current) use of insulin; E10.69 Type 1 diabetes mellitus with other specified complication; Z89.422 Acquired absence of other left toe(s); E10.42 Type 1 diabetes mellitus with diabetic polyneuropathy; L97.429 Non-pressure chronic ulcer of left heel and midfoot with unspecified severity; E10.319 Type 1 diabetes mellitus with unspecified diabetic retinopathy without macular edema; Z79.82 Long term (current) use of aspirin